=== PATIENT | male | born 1955 | race Caucasian/White ===

== ENCOUNTER → 2018-05-19 16:04 | Outpatient (CLI) | payer BC, SELFPAY | PROVIDERS: PCP Family Medicine; Visit Provider Family Medicine | DX: R40.0 Somnolence (principal); I10 Essential (primary) hypertension; E66.9 Obesity, unspecified | CPT/HCPCS: 95806 ==

== ENCOUNTER → 2018-05-23 13:36 | Outpatient (CLI) | payer BC, SELFPAY ==
[2018-05-23 14:30] VITALS: PULSE 71; PULSE 76
--- NOTE | 2018-05-23 14:43 | CT_ITS ---
CT lung screening EXAM: CT LUNG LOW DOSE WO CONTRAST HISTORY: 40 pack-year smoking history, asymptomatic for lung cancer ITS.REASON: CURRENT TOBACCO USE ORDERING PHYSICIAN: Dilan Barba MD PATIENT AGE: 62 years COMPARISON: None TECHNIQUE: The exam was performed on a GE Light Speed [address] scanner using 2.90 mGy CTDI. A low dose helical CT CHEST was performed on a multi-detector scanner. All CT scans at the facility use one or more dose reduction, viz: automated exposure control, ma/kV adjustment per patient size (including targeted exams where dose is matched to indication, i.e. head), or iterative reconstruction technique. The LDCT was performed in a facility that meets the criteria for the screening program. Data regarding this exam was submitted to ACR which is an approved registry. The order for this exam indicates that it came as a result of a lung cancer screening counseling shard decision-making visit that included all the elements required of such a visit including smoking cessation. The radiologist interpreting this exam meets the [facility] criteria for the LDCT lung cancer screening program. The exam is reported using the Lung-RADS classification scale and reported to the ACR registry. NOTE: This study was performed for the specific purposes of lung cancer screening and is not an alternative to diagnostic chest CT. RADIATION DOSE: CTDI vol(CT dose Index-volume) = 2.90mG DLP (Dose Length Product) = 119.07 mGcm FINDINGS: There are mild centrilobular emphysematous changes in the lung apices Incidental note made of bilateral gynecomastia. There are extensive coronary artery calcifications. There is a small subpleural opacity in the right upper lobe anteriorly at 7 mm. May be due to an area of parenchymal fibrosis. Small fibrotic changes present in the right lung base. There are fibrotic changes in the left lung base. A 6 mm noncalcified nodule present in the left lower lobe centrally. A 4 mm noncalcified nodule present in the left upper lobe laterally. There is a 14 mm stone in the upper pole the left kidney. There is an exophytic soft tissue density projecting off the left kidney posteriorly at 3 cm. This is indeterminant. Suggest ultrasound initially for further evaluation to determine cystic or solid nature. IMPRESSION: 1. Lung RADS Category: 3, probably benign with 7 mm nodule in the right upper lobe and a 6 and 4 mm nodule in the left 2. Other findings: Extensive coronary artery calcification, Left nephrolithiasis. Left renal mass. Cannot determine if this is cystic or solid on this exam. Suggest ultrasound initially for further evaluation RECOMMENDATIONS: 6 month LDCT follow-up Bilateral renal ultrasound
== END ==
PROVIDERS: PCP Family Medicine; Visit Provider Family Medicine
DX: Z12.2 Encounter for screening for malignant neoplasm of respiratory organs (principal); Z87.891 Personal history of nicotine dependence; R06.09 Other forms of dyspnea
CPT/HCPCS: 94060; 94640

== ENCOUNTER → 2018-06-17 12:29 | Outpatient (CLI) | payer BC, SELFPAY ==
--- NOTE | 2018-06-17 13:24 | US_ITS ---
US Kidney CLINICAL INDICATION: ITS.REASON: LT RENAL MASS ORDERING PHYSICIAN: Dilan Barba MD PATIENT AGE: 62 years Comparison: 05/23/2018 FINDINGS: The right kidney is 11 x 5.3 x 6.2 cm. No hydronephrosis or renal mass evident. The left kidney is 16 x 8 x 7 cm. A septated cyst is present in the upper pole and 4 by x 2.7 cm corresponding to the CT abnormality. There is some irregularity of the anterior wall the cyst. Calcifications noted in the mid polar region of the left kidney consistent with nephrolithiasis. IMPRESSION: 1. Complex 4 x 2.7 cm left renal cyst corresponding to the CT abnormality. Suggest 3 month ultrasound follow-up 2. Left nephrolithiasis
== END ==
PROVIDERS: PCP Family Medicine; Visit Provider Family Medicine
DX: N28.89 Other specified disorders of kidney and ureter (principal)
CPT/HCPCS: 76770

== ENCOUNTER 2018-06-20 09:14 | Observation (INO) ==
--- NOTE | 2018-06-20 10:40 | Progress Note ---
[facility] Anesthesia Checklist - Structural Data Admitted From: Home Planned Operative Procedure/s: endoscopy - Airway Assessment C-Spine Mobility Assessed: Yes TMJ Mobility Assessed: Yes Dentition: Good Dentition - Neurological Assessment Level of Consciousness: Awake, Alert, Appropriate - Anesthesia Plan Anesthesia Risk discussed: Yes Anesthesia Plan: Verified ASA Class: III Anesthesia Type: MAC [facility] History Medical History: Reports:: Diabetes Mellitus Type 2, Hyperlipidemia, Hypertension, Lung Disease (belén no cpap), Myocardial Infarction Denies:: Diabetes Mellitus Type 1, Internal Pacemaker, Seizures Other Surgeries: No: Pacemaker Family Hx:: No significant family history
--- NOTE | 2018-06-20 11:28 | Procedure Note ---
[facility] Procedure Note Procedure Note:: Colonoscopy Procedure Report: Colonoscopy with cold snare polypectomy Endoscopist: Shaquille Alonso II, MD Referring physician: Dilan Barba MD Date of Procedure: June 20, 2018 Equipment: Olympus 180 variable stiffness pediatric colonoscope Sedation: MAC sedation Indication: Mr. Lawrence is a 62-year-old gentleman who is here for high risk colonoscopy. He recently had a positive Cologuard test. His brother had colon cancer in his 50s and his sister had colon cancer in her 40s. His last colonoscopy 5 to 6 years ago revealed 3 polyps. He reports no abdominal pain, weight loss, change in his bowel habits or rectal bleeding. Procedure: Prior to the procedure, a history and physical exam was performed, and patient's medications and allergies were reviewed. The risks, benefits and alternatives of the sedation and procedure were discussed with the patient. All questions were answered and informed consent was obtained. The patient was brought to the procedure room. Patient identification and proposed procedure were verified by the physician and the nurse. The patient was placed in a left lateral decubitus position and the scope was passed under direct vision. Throughout the procedure, the patient's blood pressure, pulse, and oxygen saturations were monitored continuously. The colonoscopy was accomplished without difficulty. The patient tolerated the procedure well. Findings: On digital rectal examination there was normal rectal tone. There were no external hemorrhoids. The prostate was mildly firm but symmetric without nodules. The colonoscope was introduced through the anal canal to the rectum and advanced to the cecum. The ileocecal valve and appendiceal orifice were id entified. The scope was advanced a short distance into the ileum which appeared grossly normal. The scope was then withdrawn into the colon. There were 2 ascending polyps (2 and 4 mm), one transverse polyp (5 mm), 3 descending polyps (2, 4 and 4 mm) and a rectal polyp x1 (4 mm polyp). All 7 polyps were removed via cold snare polypectomy. Upon retroflexion within the rectum there were grade 1 internal hemorrhoids.The preparation was excellent throughout with [place] Preparation Score of 9. The cecal time was 12 minutes. Impression: 1. Diminutive colonic polyps x7 2. Grade 1 internal hemorrhoids Plan: I will follow up the polyp pathology and recommend repeat colonoscopy again in 3 years based upon the polyp histology and the patient's family history. I would encourage fiber supplementation on a long-term daily maintenance basis.
--- NOTE | 2018-06-20 13:36 | Consult Report ---
History of Present Illness Consult date: 06/20/18 Consult reason: atrial fibrillation Chief complaint: A. fib, chest pain Additional Medical History:: 1. Coronary artery disease A. History of myocardial infarction greater than 6 years ago, reportedly no cardiac cath or intervention performed B. Extensive coronary artery calcification noted on CT of the chest, 05/2018 2. Hypertension A. History of HOCM by remote echocardiograms with last one in 2012 noting h ypertensive heart disease findings with LVEF 60-65% with mild to mod MR 3. Hyperlipidemia 4. Obesity 5. Type 2 diabetes mellitus 6. Left renal mass noted on CT, 05/2018 A. Complex left renal mass noted on renal ultrasound 06/[address] 7. YESSI, declines CPAP therapy History of present illness: 62-year-old white male with history of hypertension, hyperlipidemia, coronary artery disease with remote myocardial infarction and type 2 diabetes mellitus was seen in the postop area for atrial fibrillation. Patient was here for colonoscopy today and during the procedure was noted to be in atrial fibrillation. Patient denies any history of diagnosis of atrial fibrillation. He has recently been started on treatment for type 2 diabetes. He does relate a remote myocardial infarction without need for intervention but has not had any cardiology follow-up in several years. In reviewing his old records there echoes that show evidence of hypertrophic obstructive cardiomyopathy but the last echo in 2012 shows hypertensive heart disease. Normal ejection fraction with mild to moderate mitral regurgitation. Patient does relate a progressive 6-month history of exertional shortness of breath and chest pain that resolves with rest. Symptoms are coming on with less activity and lasting longer. He denies any nausea, vomiting, diarrhea or fever or chills recently. EKG today shows atrial fibrillation with controlled ventricular response. [facility] History Medical History: Reports:: Diabetes Mellitus Type 2, Hyperlipidemia, Hypertension, Lung Disease (yessi no cpap), Myocardial Infarction Denies:: Diabetes Mellitus Type 1, Internal Pacemaker, Seizures Other Surgeries: No: Pacemaker Family Hx:: No significant family history Meds Home Medications Medication Instructions Recorded Confirmed Type Amlodipine Besylate 10 mg PO DAILY 06/15/18 06/20/18 History Aspirin [Aspir 81] 81 mg PO DAILY 06/15/18 06/20/18 History Bisoprolol Fumarate [Bisoprolol 10 mg PO DAILY 06/15/18 06/20/18 History 10mg Tablet] Dapagliflozin Propanediol [Farxiga] 5 mg PO DAILY 06/15/18 06/20/18 History Rosuvastatin Calcium 20 mg PO DAILY 06/15/18 06/20/18 History Allergies Allergy/AdvReac Type Severity Reaction Status Date / Time No Known Allergies Allergy Verified 06/20/18 09:32 Review of Systems - *Cardiovascular Reports chest pain, Reports shortness of breath with activity - *Respiratory Reports shortness of breath with activity, Denies cough - *Gastrointestinal Denies nausea, Denies vomiting - *Genitourinary Denies painful urination, Denies blood in urine - *Musculoskeletal Denies joint pain, Denies back pain Exam Vital signs and Labs for Last 24 Hours: Temp Pulse Resp BP Pulse Ox 97.9 F 81 18 148/98 H 95 06/20/18 11:30 06/20/18 12:30 06/20/18 12:30 06/20/18 12:30 06/20/18 12:30 Laboratory Results - last 24 hr 06/20/18 09:43: POC Glucose 118 H - *Routine HEENT Exam Head: Present: normocephalic Eye: Present: EOMI, PERRL ENT: Present: mucous membranes moist - *Routine Neck Exam Present: supple. Absent: JVD, carotid bruit - *Routine Respiratory Exam Present: CTA bilaterally. Absent: accessory muscle use, rales, rhonchi, wheezes - *Routine Cardiovascular Exam Present: murmur, irregularly irregular. Absent: gallop, rubs - *Routine Abdominal Exam Present: soft. Absent: tenderness, distended, guarding - *Routine Extremities Exam Absent: edema, calf tenderness - *Routine Neurological Exam Present: alert, oriented X3, moving all extremities Assessment and Plan (1) Atrial fibrillation, new onset Current visit: Yes Status: Acute Category: Medical Code(s): I48.91 - Unspecified atrial fibrillation (2) Unstable angina Current visit: Yes Status: Acute Category: Medical Code(s): I20.0 - Unstable angina (3) Diabetes mellitus type 2 in obese Current visit: Yes Status: Acute Category: Medical Code(s): E11.69 - Type 2 diabetes mellitus with other specified complication; E66.9 - Obesity, unspecified (4) Hypertension Current visit: Yes Status: Acute Category: Medical Code(s): I10 - Essential (primary) hypertension (5) Hyperlipidemia Current visit: Yes Status: Acute Category: Medical Code(s): E78.5 - Hyperlipidemia, unspecified (6) Obesity Current visit: Yes Status: Acute Category: Medical Code(s): E66.9 - Obesity, unspecified - Assessment and plan all Dx Assessment and Plan for all problems:: 1. Admitted to Dr. Barba 2. We will proceed with echocardiogram and left heart catheterization today due to extensive coronary artery calcification noted on CT scan of the chest last week in the setting of unstable angina pectoris, coronary artery disease with prior NH 3. Anticoagulation for A. fib with Xarelto 20 mg daily to begin post-cath 4. Further recommendations to follow pending above results
[2018-06-20 14:32] LABS: Basophils % 0.6 % (0.1-2.0); Eosinophils # 0.1 K/mm3 (0.0-0.4); Eosinophils % 0.8 % (0.1-12.0); Hematocrit 53.4 % (42.0-52.0); Lymphocytes # 1.3 K/mm3 (0.7-4.5); Lymphocytes % 17.1 % (10-50); Mean Corpuscular HGB Conc 34.1 g/dL (31.8-35.4); Mean Corpuscular Hemoglobin 32.4 pg (27.0-31.2); Mean Corpuscular Volume 95.1 fl (80-94); Mean Platelet Volume 7.9 fl (7.4-10.4); Monocytes # 0.5 K/mm3 (0.1-1.0); Monocytes % 7.1 % (1.7-9.3); Neutrophils # 5.7 K/mm3 (1.8-7.8); Neutrophils % 74.5 % (37.0-80.0); Platelet Count 233 K/mm3 (142-424); Red Blood Count 5.61 M/mm3 (4.60-6.20); Red Cell Distribution Width 13.5 % (11.5-17.5); White Blood Count 7.6 K/mm3 (4.8-10.8)
[2018-06-20 14:38] LABS: Anion Gap 15.9 mEq/L (5-15); Calcium 8.9 mg/dL (8.5-10.1); Potassium 3.9 mmoL/L (3.5-5.1)
[2018-06-20 14:46] LABS: Hemoglobin 18.3 g/dL (14.1-18.0)
--- NOTE | 2018-06-20 19:02 | History & Physical Report ---
*Admission Date: 06/20/18 *Chief complaint: Atrial fibrillation *History of present illness: 62-year-old male with history of coronary artery disease and diabetes was in the outpatient setting today getting a screening colonoscopy. During monitoring for screening colonoscopy he was identified as having atrial fibrillation. Cardiology service was contacted and patient admitted to change in activity tolerance with dyspnea on exertion and on recent CT scan significant coronary artery calcifications. Patient was felt at high risk for complications and with this new onset of atrial fibrillation decision was made to admit the patient for further cardiology evaluation and ischemic work-up. Patient was taken to the [facility] shortly upon admission and findings were as follows: IMPRESSION: 1. Critical 2 vessel coronary artery disease as described above 2. Successful reconstruction of the ostial proximal mid distal circumflex artery as described above critical disease reduced to 10% with 5 drug-eluting stents 3. Normal ejection fraction 4. Mildly elevated LVEDP 5. High dose radiation for the diagnostic and interventional procedure PLAN: 1. Brilinta and aspirin 2. Anticoagulation for chronic atrial fibrillation. I recommend Xarelto to be dosed according to GFR. 3. At the end of one month aspirin can be discontinued and Brilinta and Xarelto she continued 4. Beta blockers and brijesh inhibitors 5. IV fluids overnight with history of both tomorrow and the following day 6. Patient should be monitored for radiation [place] should be most prevalent on the posterior aspect 7. Avoidance of tobacco products Cardiac rehabilitation [facility] History I have reviewed the patient's past medical history: Yes Medical History: Reports:: Diabetes Mellitus Type 2, Hyperlipidemia, Hypertension, Lung Disease (belén no cpap), Myocardial Infarction Denies:: Diabetes Mellitus Type 1, Internal Pacemaker, Seizures Other Surgeries: No: Pacemaker - *Social History Educational Level: Completed High School Smoking Status: Current every day smoker *Occupational Status:: employed *Travel in the last 8 weeks: None Family Hx:: No significant family history Review of Systems - Review of Systems Review of systems:: pertinent systems reviewed and negative unless documented below - *Cardiovascular Reports excessive sweating, Reports shortness of breath, Reports shortness of breath with activity, Reports irregular heart rhythm, Reports rapid, pounding, or irregular heartbeat, Denies chest pain, Denies chest pain at rest, Denies chest pain with activity Meds Home Medications Medication Instructions Recorded Confirmed Type Amlodipine Besylate 10 mg PO DAILY 06/15/18 06/20/18 History Aspirin [Aspir 81] 81 mg PO DAILY 06/15/18 06/20/18 History Bisoprolol Fumarate [Bisoprolol 10 mg PO DAILY 06/15/18 06/20/18 History 10mg Tablet] Dapagliflozin Propanediol [Farxiga] 5 mg PO DAILY 06/15/18 06/20/18 History Rosuvastatin Calcium 20 mg PO DAILY 06/15/18 06/20/18 History Allergies Allergy/AdvReac Type Severity Reaction Status Date / Time No Known Allergies Allergy Verified 06/20/18 09:32 Exam Vital signs and Labs for Last 24 Hours: Temp Pulse Resp BP Pulse Ox 97.5 F L 70 13 156/102 H 93 L 06/20/18 18:25 06/20/18 18:43 06/20/18 18:40 06/20/18 18:40 06/20/18 18:40 Laboratory Results - last 24 hr 06/20/18 09:43: POC Glucose 118 H 06/20/18 14:25: WBC 7.6, RBC 5.61, Hgb 18.3 H*, Hct 53.4 H, MCV 95.1 H, MCH 32.4 H, MCHC 34.1, RDW 13.5, Plt Count 233, MPV 7.9, Neut % (Auto) 74.5, Lymph % (Auto) 17.1, [place] % (Auto) 7.1, Eos % (Auto) 0.8, Baso % (Auto) 0.6, Neut # (Auto) 5.7, Lymph # (Auto) 1.3, [place] # (Auto) 0.5, Eos # (Auto) 0.1, Baso # (Auto) 0.0 06/20/18 14:25: Sodium 138, Potassium 3.9, Chloride 103, Carbon Dioxide 23, Anion Gap 15.9 H, BUN 14, Creatinine 1.04, Estimated Creat Clear 118, Estimated GFR 72, Est GFR ( Amer) 88, Glucose 121 H, Calcium 8.9 06/20/18 15:08: Activated Clotting Time > 400 H* 06/20/18 16:57: Activated Clotting Time > 400 H* 06/20/18 17:21: Activated Clotting Time 283 H* D I & O for Last 24 hours: Intake & Output 06/18/18 06/19/18 06/20/1807/19 11:59 11:59 11:59 11:59 Intake Total 1100 / 1100 Balance 1100 / 1100 Narrative: Patient is awake and alert laying in bed. Oropharynx is moist and clear. Neck has no carotid bruits. There is no jugular venous distention. Lungs are clear. Heart has an irregular rate and rhythm. Abdomen is obese. Extremities are warm to the touch. Assessment and Plan (1) Atrial fibrillation, new onset Current visit: Yes Status: Acute Category: Medical Code(s): I48.91 - Unspecified atrial fibrillation (2) Unstable angina Current visit: Yes Status: Acute Category: Medical Code(s): I20.0 - Unstable angina (3) Diabetes mellitus type 2 in obese Current visit: Yes Status: Acute Category: Medical Code(s): E11.69 - Type 2 diabetes mellitus with other specified complication; E66.9 - Obesity, unspecified (4) Hypertension Current visit: Yes Status: Acute Category: Medical Code(s): I10 - Essential (primary) hypertension (5) Hyperlipidemia Current visit: Yes Status: Acute Category: Medical Code(s): E78.5 - Hyperlipidemia, unspecified (6) Obesity Current visit: Yes Status: Acute Category: Medical Code(s): E66.9 - Obesity, unspecified (7) Coronary artery disease Current visit: Yes Status: Acute Category: Medical Code(s): I25.10 - Atherosclerotic heart disease of [place] coronary artery without angina pectoris - Assessment and plan all Dx Assessment and Plan for all problems:: 1. Cardiac monitoring overnight. Patient will be given his amlodipine, BRIJESH inhibitor will be started. Beta-sean will be held due to mild bradycardia. Begin Xarelto in addition to aspirin and Brilinta
--- NOTE | 2018-06-20 20:17 | Cardiology Report ---
PROCEDURE: 2-D M-mode and color Doppler study INDICATIONS FOR THE TEST: Chest pain COPD Heart Murmur Tobacco Smoking Palpitations Fatigue Syncope Edema HypertensionXDiabetes MellitusX Rheumatic Fever SOB [place]UMMOND ObesityXHyperlipidemiaX Family History HD TDS OBESITY Additional History NEW ONSET AF,CAD,YESSI PATIENT INFORMATION HEIGHT: 67 WEIGHT:250 GENDER: Male B/P:110/70 2-D/M-MODE INTERPRETATION: 2-D MEASUREMENTS OBSERVED VALUES IN CMS Right Ventricular Dimension (RVDd) 2.4 Interventricular Septum (Thickness)(IVsd) 1.2 Left Ventricular Internal Dimensions(LVIDd) 4.8 Left Ventricular Posterior Wall (Thickness)(LVPWd) 1.3 Aortic Root 4.1 Aortic Cusp Separation 1.6 Left Atrial Dimensions (LAD) 4.3 2D 1. Left atrium is moderately enlarged, left ventricle is normal size, mild concentric left ventricular hypertrophy, visually estimated ejection fraction 55% with no regional wall motion abnormality. 2. The right atrium and right ventricle are moderately enlarged with normal contractility. 3. The aortic valve is thickened and calcified, leaflet continue to display mobility. 4. The mitral and tricuspid valve leaflets are minimally thickened. 5. The pulmonic valve is poorly visualized. 6. No significant pericardial effusion noted. DOPPLER INTERROGATION: Doppler interrogation of the aortic, mitral and tricuspid valvular presence of mild mitral and tricuspid regurgitation, calculated right ventricular systolic pressure is 44 mmHg consistent with moderate pulmonary hypertension, diastolic parameters are inconclusive. CONCLUSION: 1. Moderate biatrial enlargement, normal left ventricular size, mild concentric left ventricular hypertrophy, visually estimated ejection fraction 55% with no regional wall motion abnormality, diastolic parameters are inconclusive. 2. Moderately enlarged left ventricle with normal contractility. 3. Mild mitral and tricuspid regurgitation, calculated right ventricular systolic pressure is 44 mmHg consistent with moderate pulmonary hypertension. 4. No significant pericardial effusion noted.
[2018-06-21 05:21] LABS: Basophils % 0.2 % (0.1-2.0); Eosinophils % 0.2 % (0.1-12.0); Hematocrit 45.6 % (42.0-52.0); Lymphocytes # 1.5 K/mm3 (0.7-4.5); Mean Corpuscular Volume 94.2 fl (80-94); Mean Platelet Volume 8.2 fl (7.4-10.4); Monocytes # 0.8 K/mm3 (0.1-1.0); Monocytes % 7.4 % (1.7-9.3); Neutrophils # 8.9 K/mm3 (1.8-7.8); Neutrophils % 79.3 % (37.0-80.0); Platelet Count 229 K/mm3 (142-424); Red Blood Count 4.84 M/mm3 (4.60-6.20); Red Cell Distribution Width 13.6 % (11.5-17.5); White Blood Count 11.3 K/mm3 (4.8-10.8)
[2018-06-21 05:25] LABS: Hemoglobin 15.6 g/dL (14.1-18.0)
[2018-06-21 05:29] LABS: Anion Gap 13.8 mEq/L (5-15); Calcium 8.4 mg/dL (8.5-10.1); Potassium 3.8 mmoL/L (3.5-5.1)
--- NOTE | 2018-06-21 07:00 | Progress Note ---
Internal Medicine - PN: Subj *Date: 06/21/18 *Time: 06:58 Interval history: Patient has no complaints and reports feeling well this morning. He denies chest pain or palpitations or shortness of breath. Nursing reports patient required a dose of clonidine overnight due to hypertension. Exam Vital signs and Labs for Last 24 Hours: Temp Pulse Resp BP Pulse Ox 98.1 F 87 16 122/74 97 06/21/18 00:55 06/21/18 06:00 06/21/18 00:55 06/21/18 06:00 06/21/18 06:00 Laboratory Results - last 24 hr 06/20/18 09:43: POC Glucose 118 H 06/20/18 14:25: WBC 7.6, RBC 5.61, Hgb 18.3 H*, Hct 53.4 H, MCV 95.1 H, MCH 32.4 H, MCHC 34.1, RDW 13.5, Plt Count 233, MPV 7.9, Neut % (Auto) 74.5, Lymph % (Auto) 17.1, [place] % (Auto) 7.1, Eos % (Auto) 0.8, Baso % (Auto) 0.6, Neut # (Auto) 5.7, Lymph # (Auto) 1.3, [place] # (Auto) 0.5, Eos # (Auto) 0.1, Baso # (Auto) 0.0 06/20/18 14:25: Sodium 138, Potassium 3.9, Chloride 103, Carbon Dioxide 23, Anion Gap 15.9 H, BUN 14, Creatinine 1.04, Estimated Creat Clear 118, Estimated GFR 72, Est GFR ( Amer) 88, Glucose 121 H, Calcium 8.9 06/20/18 15:08: Activated Clotting Time > 400 H* 06/20/18 16:57: Activated Clotting Time > 400 H* 06/20/18 17:21: Activated Clotting Time 283 H* D 06/21/18 04:55: WBC 11.3 H D, RBC 4.84, Hgb 15.6 D, Hct 45.6, MCV 94.2 H, MCH 32.0 H, MCHC 34.0, RDW 13.6, Plt Count 229, MPV 8.2, Neut % (Auto) 79.3, Lymph % (Auto) 13.0, [place] % (Auto) 7.4, Eos % (Auto) 0.2, Baso % (Auto) 0.2, Neut # (Auto) 8.9 H, Lymph # (Auto) 1.5, [place] # (Auto) 0.8, Eos # (Auto) 0.0, Baso # (Auto) 0.0 06/21/18 04:55: Sodium 138, Potassium 3.8, Chloride 105, Carbon Dioxide 23, Anion Gap 13.8, BUN 13, Creatinine 1.01, Estimated Creat Clear 117, Estimated GFR 75, Est GFR ( Amer) 91, Glucose 118 H, Calcium 8.4 L I & O for Last 24 hours: Intake & Output 06/18/18 06/19/18 06/20/18 06/21/18 11:59 11:59 11:59 11:59 Intake Total 1110 / 1110 Output Total 600 / 600 Balance 510 / 510 Weight 240 lb Narrative: Patient is awake and alert and sitting up in bed. He appears comfortable. Lungs are clear to auscultation. Heart has an irregularly irregular rate and rhythm. Abdomen is obese Assessment and Plan (1) Atrial fibrillation, new onset Current visit: Yes Status: Acute Category: Medical Code(s): I48.91 - Unspecified atrial fibrillation (2) Unstable angina Current visit: Yes Status: Acute Category: Medical Code(s): I20.0 - Unstable angina (3) Diabetes mellitus type 2 in obese Current visit: Yes Status: Acute Category: Medical Code(s): E11.69 - Type 2 diabetes mellitus with other specified complication; E66.9 - Obesity, unspecified (4) Hypertension Current visit: Yes Status: Acute Category: Medical Code(s): I10 - Essential (primary) hypertension (5) Hyperlipidemia Current visit: Yes Status: Acute Category: Medical Code(s): E78.5 - Hyperlipidemia, unspecified (6) Obesity Current visit: Yes Status: Acute Category: Medical Code(s): E66.9 - Obesity, unspecified (7) Coronary artery disease Current visit: Yes Status: Acute Category: Medical Code(s): I25.10 - Atherosclerotic heart disease of [place] coronary artery without angina pectoris - Assessment and plan all Dx Assessment and Plan for all problems:: 1. Patient will be ordered bisoprolol 10 mg this morning as it is his home dose beta-sean. 2. Continue BRIJESH inhibitor. 3. Possible discharge today, await cardiology evaluation
--- NOTE | 2018-06-21 07:17 | Pharmacy Consult Notes ---
[facility] Pharmacy VTE Monitoring - Patient Demographics Admission date: 06/20/18 Report Date: 06/21/18 Time: 07:17 Allergies/Adverse Reactions: Patient Allergies No Known Allergies Allergy (Verified 06/20/18 19:39) Height: 1.7 m Weight: 108.862 kg Patient Problems: Current Active Problems (Updated 06/20/18 @ 19:01 by Dilan Barba MD) Atrial fibrillation, new onset (Acute) Unstable angina (Acute) Diabetes mellitus type 2 in obese (Acute) Hypertension (Acute) Hyperlipidemia (Acute) Obesity (Acute) Coronary artery disease (Acute) - VTE Risk Labs: VTE Related Lab Results Hgb 15.6 g/dL (14.1-18.0) D 06/21/18 04:55 Hct 45.6 % (42.0-52.0) 06/21/18 04:55 Plt Count 229 K/mm3 (142-424) 06/21/18 04:55 BUN 13 mg/dL (7-18) 06/21/18 04:55 Creatinine 1.01 mg/dL (0.70-1.30) 06/21/18 04:55 Estimated Creat Clear 117 mL/min (50-200) 06/21/18 04:55 Was VTE Risk Assessment Performed: Yes VTE Score: 3 VTE Risk Level: Low Risk Clinical Trial Participant: No - Prophylaxis Types of VTE Prophylaxis: Pharmacological Location of Applied Device: Not Applicable Pharmacologic Type: Heparin
--- NOTE | 2018-06-21 09:16 | Progress Note ---
Subjective Date: 06/21/18 Time: 09:09 Principal diagnosis: UAP, New A. fib Interval history: 62 yo WM in bedside chair in NAD. No complaints overnight. Telemetry shows A. fib with RVR up to 130 bpm. Wants to go home. Reviewed cardiac cath results with patient and . Exam Vital signs and Labs for Last 24 Hours: Temp Pulse Resp BP Pulse Ox 98.1 F 121 H 18 130/63 95 06/21/18 00:55 06/21/18 08:00 06/21/18 08:00 06/21/18 08:00 06/21/18 08:00 Laboratory Results - last 24 hr 06/20/18 09:43: POC Glucose 118 H 06/20/18 14:25: WBC 7.6, RBC 5.61, Hgb 18.3 H*, Hct 53.4 H, MCV 95.1 H, MCH 32.4 H, MCHC 34.1, RDW 13.5, Plt Count 233, MPV 7.9, Neut % (Auto) 74.5, Lymph % (Auto) 17.1, [place] % (Auto) 7.1, Eos % (Auto) 0.8, Baso % (Auto) 0.6, Neut # (Auto) 5.7, Lymph # (Auto) 1.3, [place] # (Auto) 0.5, Eos # (Auto) 0.1, Baso # (Auto) 0.0 06/20/18 14:25: Sodium 138, Potassium 3.9, Chloride 103, Carbon Dioxide 23, Anion Gap 15.9 H, BUN 14, Creatinine 1.04, Estimated Creat Clear 118, Estimated GFR 72, Est GFR ( Amer) 88, Glucose 121 H, Calcium 8.9 06/20/18 15:08: Activated Clotting Time > 400 H* 06/20/18 16:57: Activated Clotting Time > 400 H* 06/20/18 17:21: Activated Clotting Time 283 H* D 06/21/18 04:55: WBC 11.3 H D, RBC 4.84, Hgb 15.6 D, Hct 45.6, MCV 94.2 H, MCH 32.0 H, MCHC 34.0, RDW 13.6, Plt Count 229, MPV 8.2, Neut % (Auto) 79.3, Lymph % (Auto) 13.0, [place] % (Auto) 7.4, Eos % (Auto) 0.2, Baso % (Auto) 0.2, Neut # (Auto) 8.9 H, Lymph # (Auto) 1.5, [place] # (Auto) 0.8, Eos # (Auto) 0.0, Baso # (Auto) 0.0 06/21/18 04:55: Sodium 138, Potassium 3.8, Chloride 105, Carbon Dioxide 23, Anion Gap 13.8, BUN 13, Creatinine 1.01, Estimated Creat Clear 117, Estimated GFR 75, Est GFR ( Amer) 91, Glucose 118 H, Calcium 8.4 L I & O for Last 24 hours: Intake & Output 06/18/18 06/19/18 06/20/18 06/21/18 11:59 11:59 11:59 11:59 Intake Total 1110 / 1110 Output Total 600 / 600 Balance 510 / 510 Weight 240 lb - *Routine HEENT Exam Head: Present: normocephalic Eye: Present: EOMI, PERRL ENT: Present: mucous membranes moist - *Routine Respiratory Exam Present: CTA bilaterally. Absent: accessory muscle use, rales, rhonchi, wheezes - *Routine Cardiovascular Exam Present: RRR. Absent: murmur, gallop, rubs - *Routine Extremities Exam Absent: edema, calf tenderness - *Routine Neurological Exam Present: alert, oriented X3, moving all extremities Progress Note: A&P (1) Atrial fibrillation, new onset Status: Acute Current Visit: Yes (2) Unstable angina Status: Acute Current Visit: Yes (3) Diabetes mellitus type 2 in obese Status: Acute Current Visit: Yes (4) Hypertension Status: Acute Current Visit: Yes (5) Hyperlipidemia Status: Acute Current Visit: Yes (6) Obesity Status: Acute Current Visit: Yes (7) Coronary artery disease Status: Acute Current Visit: Yes Assessment and Plan for All Diagnoses:: 1. Extensive coronary intervention of circumflex yesterday with high dose radiation exposure. Asymptomatic this AM with no chest pain or skin medina. 2. LILY to Cx, on ASA 81 mg daily and brilinta 90 mg BID. 3. Newly diagnosed A. fib, on Xarelto 20 mg daily. 4. Would recommend increasing bisoprolol to 10 mg in the AM and 5 mg in the evening for rate control. 5. Lisinopril for renal protection in diabetic. Adjust dose as needed for BP. 6. Atorvastatin 40 mg daily. 7. would discontinue norvasc in favor of more bisoprolol and lisinopril. 8. Follow up in our office next week. 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
--- NOTE | 2018-06-21 14:40 | Discharge Summary ---
General - General Admission date:: 06/20/18 Discharge date: 06/21/18 HPI HPI: 62-year-old male with history of coronary artery disease and diabetes was in the outpatient setting today getting a screening colonoscopy. During monitoring for screening colonoscopy he was identified as having atrial fibrillation. Cardiology service was contacted and patient admitted to change in activity tolerance with dyspnea on exertion and on recent CT scan significant coronary artery calcifications. Patient was felt at high risk for complications and with this new onset of atrial fibrillation decision was made to admit the patient for further cardiology evaluation and ischemic work-up. Patient was taken to the Chief Underwriter shortly upon admission and findings were as follows: IMPRESSION: 1. Critical 2 vessel coronary artery disease as described above 2. Successful reconstruction of the ostial proximal mid distal circumflex artery as described above critical disease reduced to 10% with 5 drug-eluting stents 3. Normal ejection fraction 4. Mildly elevated LVEDP 5. High dose radiation for the diagnostic and interventional procedure PLAN: 1. Brilinta and aspirin 2. Anticoagulation for chronic atrial fibrillation. I recommend Xarelto to be dosed according to GFR. 3. At the end of one month aspirin can be discontinued and Brilinta and Xarelto she continued 4. Beta blockers and elvin inhibitors 5. IV fluids overnight with history of both tomorrow and the following day 6. Patient should be monitored for radiation medina should be most prevalent on the posterior aspect 7. Avoidance of tobacco products Cardiac rehabilitation Hospital Course Hospital Course: Patient was observed overnight. Blood pressure was elevated which required oral clonidine. Pulse remained 100bpm or less in atrial fibrillation. Medication adjustments were made to include bisoprolol 10mg in a.m. and 5mg in p.m., lisinopril 10 mg, Xarelto 20mg, and Brilinta 90mg bid. Patient was discharged to home later in day on 06/21/18 and will follow up with me on 06/[address] Campbell in one week Objective Vital signs: Temp Pulse Resp BP Pulse Ox 97.6 F 77 18 121/67 96 06/21/18 08:00 06/21/18 11:54 06/21/18 11:54 06/21/18 11:54 06/21/18 11:54 Results Labs on day of discharge: Labs from last 24 hours 06/21/18 06/21/18 06/20/18 04:55 04:55 17:21 WBC 11.3 H D RBC 4.84 Hgb 15.6 D Hct 45.6 MCV 94.2 H MCH 32.0 H MCHC 34.0 RDW 13.6 Plt Count 229 MPV 8.2 Neut % (Auto) 79.3 Lymph % (Auto) 13.0 [place] % (Auto) 7.4 Eos % (Auto) 0.2 Baso % (Auto) 0.2 Neut # (Auto) 8.9 H Lymph # (Auto) 1.5 [place] # (Auto) 0.8 Eos # (Auto) 0.0 Baso # (Auto) 0.0 Activated Clotting Time 283 H* D Sodium 138 Potassium 3.8 Chloride 105 Carbon Dioxide 23 Anion Gap 13.8 BUN 13 Creatinine 1.01 Estimated Creat Clear 117 Estimated GFR 75 Est GFR ( Amer) 91 Glucose 118 H Calcium 8.4 L 06/20/18 06/20/18 06/20/18 16:57 15:08 14:25 WBC RBC Hgb Hct MCV MCH MCHC RDW Plt Count MPV Neut % (Auto) Lymph % (Auto) [place] % (Auto) Eos % (Auto) Baso % (Auto) Neut # (Auto) Lymph # (Auto) [place] # (Auto) Eos # (Auto) Baso # (Auto) Activated Clotting Time > 400 H* > 400 H* Sodium 138 Potassium 3.9 Chloride 103 Carbon Dioxide 23 Anion Gap 15.9 H BUN 14 Creatinine 1.04 Estimated Creat Clear 118 Estimated GFR 72 Est GFR ( Amer) 88 Glucose 121 H Calcium 8.9 06/20/18 14:25 WBC RBC Hgb 18.3 H* Hct MCV MCH MCHC RDW Plt Count MPV Neut % (Auto) Lymph % (Auto) [place] % (Auto) Eos % (Auto) Baso % (Auto) Neut # (Auto) Lymph # (Auto) [place] # (Auto) Eos # (Auto) Baso # (Auto) Activated Clotting Time Sodium Potassium Chloride Carbon Dioxide Anion Gap BUN Creatinine Estimated Creat Clear Estimated GFR Est GFR ( Amer) Glucose Calcium DS: Diagnosis - Discharge Diagnosis (1) Atrial fibrillation, new onset Status: Acute (2) Unstable angina Status: Acute (3) Diabetes mellitus type 2 in obese Status: Acute (4) Hypertension Status: Acute (5) Hyperlipidemia Status: Acute (6) Obesity Status: Acute (7) Coronary artery disease Status: Acute Discharge Plan - Patient Discharge Instructions ACTIVITY: Continue current activity DIET: continue same diet Patient Instructions: Type 2 Diabetes, Atrial Fibrillation, Angina, Cardiac Catheterization, High Blood Pressure, DI for Angina, DI for Atrial Fibrillation, DI for Diabetes Type 2, DI for Surgical Site Infection - Follow up Plan Follow up with: Peewee Campbell MD [Staff Physician] - Dilan Barba MD [Primary Care Provider] - 06/24/18 8:45 am Disposition: Home, Self-Half-Way Medications: Home Medications Medication Instructions Recorded Confirmed Type Aspirin [Aspir 81] 81 mg PO DAILY 06/15/18 06/20/18 History Rosuvastatin Calcium 20 mg PO DAILY 06/15/18 06/20/18 History Bisoprolol Fumarate [Bisoprolol 10 mg PO DIRECTED 30 Days #45 06/21/18 Rx 10mg Tablet] tab Lisinopril [Lisinopril 10mg Tab] 10 mg PO DAILY #30 tab 06/21/18 Rx Rivaroxaban [Xarelto 20mg Tablet] 20 mg PO DAILY #30 tab 06/21/18 Rx Ticagrelor [Brilinta 90mg Tablet] 90 mg PO BID #60 tab 06/21/18 Rx Prescriptions/Medication Reconciliation: New Ticagrelor [Brilinta 90mg Tablet] 90 mg PO BID #60 tab Rivaroxaban [Xarelto 20mg Tablet] 20 mg PO DAILY #30 tab Bisoprolol Fumarate [Bisoprolol 10mg Tablet] 10 mg PO DIRECTED 30 Days #45 tab Lisinopril [Lisinopril 10mg Tab] 10 mg PO DAILY #30 tab Continued Rosuvastatin Calcium 20 mg PO DAILY Aspirin [Aspir 81] 81 mg PO DAILY Discontinued Bisoprol/Hydrochlorothiazide [Bisoprolol-Hctz 5-6.25 mg Tab] 1 tab PO DAILY Empagliflozin [Jardiance] 10 mg PO DAILY Amlodipine Besylate/Benazepril [Amlodipine-Benazepril 10-40 mg] 1 cap PO DAILY
== END 2018-06-21 13:49 | disposition home or self-care (01) ==
LOC: OUTP 09:14 → ICU 09:14
PROVIDERS: ADMIT Family Medicine; ATTEND Family Medicine
CPT/HCPCS: 36415; 80048; 82962; 85025; 85347; 92928; 93005; 93306; 93458; 99152; 99153; C1725; C1760; C1769; C1876; C1894; C9600; G0378; J1644; Q9967

== ENCOUNTER → 2018-06-24 09:25 | Outpatient (CLI) | payer BC, SELFPAY ==
[2018-06-24 09:53] LABS: Hematocrit 48.1 % (42.0-52.0); Hemoglobin 15.7 g/dL (14.1-18.0)
[2018-06-24 11:14] LABS: Blood Urea Nitrogen 13 mg/dL (7-18); Creatinine,Serum 1.05 mg/dL (0.70-1.30); Estimated Glomerular Filt Rate 72 ml/min (>60); GFR (African American) 87 ML/MIN (>60)
== END ==
PROVIDERS: Visit Provider Internal Medicine
DX: Z95.5 Presence of coronary angioplasty implant and graft (principal)
CPT/HCPCS: 36415; 82565; 84520; 85014; 85018

== ENCOUNTER → 2018-07-29 11:58 | Outpatient (CLI) | payer BC, SELFPAY ==
--- NOTE | 2018-07-29 12:11 | XR_ITS ---
XR chest 2V HISTORY: Heart disease, cardiac dysrhythmia, shortness of breath ITS.REASON: amiodarone therapy ORDERING PHYSICIAN: Oseas Swenson MD PATIENT AGE: 62 years COMPARISON: None FINDINGS: There is mild cardiomegaly without failure. Lungs are clear. No evidence of amiodarone-induced lung toxicity. Coronary artery stent is noted. No acute bony findings. IMPRESSION: Cardiomegaly, otherwise negative.
[2018-07-29 14:56] LABS: Alanine Aminotransferase 50 U/L (12-78); Albumin Level 3.9 gm/dL (3.4-5.0); Alkaline Phosphatase 72 U/L (46-116); Aspartate Amino Transferase 24 U/L (15-37); Bilirubin,Direct 0.2 mg/dL (0.0-0.2); Bilirubin,Indirect 0.5 mg/dL (0.0-0.9); Bilirubin,Total 0.7 mg/dL (0.2-1.0); Free Thyroxine Index 1.1 ug/dL (5.93-13.13); T4 (Thyroxine) 3.6 ug/dl (4.7-13.3); Thyroid Stimulating Hormone 5.33 uIU/ml (0.358-3.740); Total Protein,Serum 7.2 gm/dL (6.4-8.2); Triiodothryronine (T3) Uptake 31 % (31-39)
== END ==
PROVIDERS: Visit Provider Internal Medicine Cardiovascular Disease
DX: E11.69 Type 2 diabetes mellitus with other specified complication (principal); E66.01 Morbid (severe) obesity due to excess calories; E78.2 Mixed hyperlipidemia; I10 Essential (primary) hypertension; I25.10 Atherosclerotic heart disease of native coronary artery without angina pectoris; R06.00 Dyspnea, unspecified; I48.91 Unspecified atrial fibrillation; Z79.899 Other long term (current) drug therapy
CPT/HCPCS: 36415; 71046; 80076; 84436; 84443; 84479

== ENCOUNTER → 2018-08-26 13:13 | Outpatient (CLI) | payer BC, SELFPAY ==
--- NOTE | 2018-08-26 | NVE_ITS ---
Venous Exam Indications: 782.3 Edema. 729.5 Pain in limb. Cardioversion 08/11/18. Patient states he had an IV stick with the cardioversion but was in the right upper extremity. States he has had extensive bruising and swelling in the left upper extremity since. Palpable area noted in the mid upper arm of the left extremity. IMPRESSIONS No evidence of deep or superficial vein thrombosis involving the veins of the left upper extremity History: Left upper extremity pain. Redness in the left upper extremity. Left upper extremity venous duplex. Doppler flow study including spectral analysis, color and tolliver scale imaging. Location: Vascular laboratory. Patient status: Outpatient. CRITICAL FINDINGS - Reported to: Dr. DEBBY Rios office - Read back and verified. - 08/26/18 - 13:45 - LUE negative for DVT or SVT Incidental findings: A hematoma is noted incidentally on the left. Tables: Venous flow and imaging: + + + Location Flow properties + + + Left internal jugular Normal phasicity; spontaneous; compressible + + + Left subclavian Normal phasicity; spontaneous; normal augmentation; compressible + + + Left axillary Normal phasicity; spontaneous; normal augmentation; compressible + + + Left brachial Normal phasicity; spontaneous; normal augmentation; compressible + + + Left cephalic Normal phasicity; spontaneous; normal augmentation; compressible + + + Left basilic Normal phasicity ; spontaneous; normal augmentation; compressible + + + Left radial Compressible + + + Left ulnar Compressible + + + Right subclavian Normal phasicity; spontaneous; normal augmentation; compressible + + + (Report amended ) Electronically signed by: Renny Salinas [id number]
== END ==
PROVIDERS: PCP Family Medicine; Visit Provider Internal Medicine Cardiovascular Disease
DX: M79.622 Pain in left upper arm (principal); R60.0 Localized edema
CPT/HCPCS: 93971

== ENCOUNTER → 2018-09-19 13:12 | Outpatient (CLI) | payer BC, SELFPAY ==
--- NOTE | 2018-09-19 13:17 | US_ITS ---
US Kidney CLINICAL INDICATION: Follow-up left renal mass ITS.REASON: LT RENAL MASS ORDERING PHYSICIAN: Dilan Barba MD PATIENT AGE: 63 years Comparison: 06/17/2018 FINDINGS: The right kidney is 10 x 4 x 5 cm. No hydronephrosis, renal mass, or other significant anomalies. Left kidney is 15 x 8 x 7 cm. There is a complex septated cystic lesion in the mid aspect of the left kidney at 4.4 x 3.9 x 2.8 cm not significant change. No hydronephrosis. IMPRESSION: Overall no significant change complex left renal cyst. 6 month follow-up recommended
== END ==
PROVIDERS: PCP Family Medicine; Visit Provider Family Medicine
DX: N28.89 Other specified disorders of kidney and ureter (principal)
CPT/HCPCS: 76770

== ENCOUNTER → 2019-03-31 12:47 | Outpatient (CLI) | payer BC, SELFPAY ==
--- NOTE | 2019-03-31 13:00 | US_ITS ---
PROCEDURE: US KIDNEY CLINICAL INDICATION: AQUIRED COMPLEX RENAL CYST COMPARISON: KIDNEY US Kidney from 09/19/2018 FINDINGS: The right kidney is 9 x 5 x 6 cm. There is some cortical thinning involving the right kidney suggesting some scarring. No hydronephrosis. The left kidney is 16 x 7 x 7 cm. There is a complex cyst involving the mid polar region of the left kidney measuring 4.5 by 4.1 by 2.5 cm with an internal septation. This is not significantly changed. No left hydronephrosis IMPRESSION: No change in the complex left renal cyst Dictated by: Renny Salinas MD 03/31/2019 15:49 Electronically signed by Renny Salinas MD in [place] 03/31/2019 15:49
== END ==
PROVIDERS: PCP Family Medicine; Visit Provider Family Medicine
DX: N28.1 Cyst of kidney, acquired (principal)
CPT/HCPCS: 76770

== ENCOUNTER → 2019-06-15 14:12 | Outpatient (CLI) | payer BC, SELFPAY ==
--- NOTE | 2019-06-15 14:16 | CT_ITS ---
PROCEDURE: CT LUNG SCREENING CLINICAL INDICATION: H/O NICOTINE DEPENDENCE 40+ pack-year smoking history, asymptomatic for lung cancer COMPARISON: LUNGSCREEN CT lung screening from 05/23/2018 TECHNIQUE: The exam was performed on a GE Light Speed [address] scanner using 2.90 mGy CTDI. A low dose helical CT CHEST was performed on a multi-detector scanner. All CT scans at the facility use one or more dose reduction, viz: automated exposure control, ma/kV adjustment per patient size (including targeted exams where dose is matched to indication, i.e. head), or iterative reconstruction technique. The LDCT was performed in a facility that meets the criteria for the screening program. Data regarding this exam was submitted to ACR which is an approved registry. The order for this exam indicates that it came as a result of a lung cancer screening counseling shard decision-making visit that included all the elements required of such a visit including smoking cessation. The radiologist interpreting this exam meets the [facility] criteria for the LDCT lung cancer screening program. The exam is reported using the Lung-RADS classification scale and reported to the ACR registry. NOTE: This study was performed for the specific purposes of lung cancer screening and is not an alternative to diagnostic chest CT. RADIATION DOSE: CTDI vol(CT dose Index-volume) = 2.90mG DLP (Dose Length Product) = 101.60 mGcm FINDINGS: Stable subpleural opacity right middle lobe at 5 mm. There is some faint ground-glass attenuation in the the lower lobes. 4 mm nodular opacity left lower lobe image 36 series 4 unchanged. No new nodules evident.. Stable 4 mm nodule left upper lobe. OTHER FINDINGS: Extensive coronary artery calcification. Gynecomastia. Cortical scarring of the right kidney. Previously noted exophytic density of the left kidney is not covered on this exam. IMPRESSION: Lung rads category 2 benign findings. Recommend annual screening LD CT Extensive coronary artery calcification Dictated by: Renny Salinas MD 07/06/2019 09:22 Electronically signed by Renny Salinas MD in [place] 07/06/2019 09:22
== END ==
PROVIDERS: PCP Family Medicine; Visit Provider Family Medicine
DX: Z87.891 Personal history of nicotine dependence (principal); Z12.2 Encounter for screening for malignant neoplasm of respiratory organs

== ENCOUNTER → 2019-08-28 11:11 | Outpatient (CLI) | payer BC, SELFPAY ==
[2019-08-28 12:15] LABS: Chloride 105 mmol/L (98-107); Potassium 4.6 mmoL/L (3.5-5.1); Sodium 142 mmol/L (136-145)
[2019-08-28 12:18] LABS: Anion Gap 15.6 mEq/L (5-15); Blood Urea Nitrogen 22 mg/dl (9-20); Calcium 9.8 mg/dl (8.4-10.2); Carbon Dioxide 26 mmol/L (22.0-30.0); Estimated Glomerular Filt Rate 51 ml/min (>60); GFR (African American) 62 ML/MIN (>60); Glucose 144 mg/dl (74-100)
== END ==
PROVIDERS: Visit Provider Physician Assistant
DX: I25.10 Atherosclerotic heart disease of native coronary artery without angina pectoris (principal); I48.20 Chronic atrial fibrillation, unspecified; E78.2 Mixed hyperlipidemia; I10 Essential (primary) hypertension
CPT/HCPCS: 36415; 80048

== ENCOUNTER → 2019-09-04 08:00 | Outpatient (CLI) | payer BC, SELFPAY ==
[2019-09-04 08:55] LABS: Chloride 103 mmol/L (98-107); Potassium 4.7 mmoL/L (3.5-5.1); Sodium 140 mmol/L (136-145)
[2019-09-04 08:58] LABS: Anion Gap 12.7 mEq/L (5-15); Blood Urea Nitrogen 17 mg/dl (9-20); Carbon Dioxide 29 mmol/L (22.0-30.0); Estimated Glomerular Filt Rate 68 ml/min (>60); GFR (African American) 82 ML/MIN (>60)
[2019-09-04 08:59] LABS: Calcium 9.2 mg/dl (8.4-10.2); Glucose 154 mg/dl (74-100)
== END ==
PROVIDERS: Visit Provider Physician Assistant
DX: I25.10 Atherosclerotic heart disease of native coronary artery without angina pectoris (principal); I48.91 Unspecified atrial fibrillation; E78.5 Hyperlipidemia, unspecified; E66.9 Obesity, unspecified; I10 Essential (primary) hypertension
CPT/HCPCS: 36415; 80048

== ENCOUNTER → 2019-12-08 09:15 | Outpatient (CLI) | payer BC, SELFPAY ==
--- NOTE | 2019-12-08 09:16 | CA_ITS ---
APPROVED REPORT Supervisor Rod Placing: Blessing Lee RVT Study Quality: Good Indications: HTN Risk Factors Hypertension Obesity Diabetes Surgery/Intervention Renal Artery Stent : Renal Artery Doppler Proximal (R) 99.7/ cm/sec Mid (R) 56.5/ cm/sec Distal (R) 65.5/ cm/sec Renal Aorta Ratio (R) 2.09 Segmental A. (R) 45.3/15.8 cm/sec RI: 0.65 Segmental A. Sup (R) 33.8/7.2 cm/sec Segmental A. Mid (R) 43.2/12.2 cm/sec Segmental A. Inf (R) 45.3/15.8 cm/sec Proximal (L) 121.5/ cm/sec Mid (L) 112.7/ cm/sec Distal (L) 100.5/ cm/sec Renal Aorta Ratio (L) 2.55 Segmental A. (L) 41.4/10.1 cm/sec RI: 0.75 Segmental A. Sup (L) 36.0/12.0 cm/sec Segmental A. Mid (L) 28.2/9.3 cm/sec Segmental A. Inf (L) 41.4/10.1 cm/sec Renal Measurements Kidney Size (R) 8.4x6.5 cm Cortical Thickness (R) 1.1 cm Kidney Size (L) 15.5x8.4 cm Cortical Thickness (L) 2.2 cm Findings Study suggests no evidence of stenosis in the bilateral renal arteries. 1.1 x 1.2 cm cystic lesion upper pole of left kidney. 2.7 X 3.1 cm sepated cystic lesion mid pole of left kidney. 1.7 cm hyperechoic focus with shadowing seen mid pole of left kidney, probable non-obstructing nephrolithiasis. Conclusion Study suggests no evidence of stenosis in the bilateral renal arteries. 1.1 x 1.2 cm cystic lesion upper pole of left kidney. 2.7 X 3.1 cm sepated cystic lesion mid pole of left kidney. 1.7 cm hyperechoic focus with shadowing seen mid pole of left kidney, probable non-obstructing nephrolithiasis. Electronically signed by : Renny Salinas MD 12/08/2019 17:21:24
--- NOTE | 2019-12-08 10:13 | US_ITS ---
PROCEDURE: US KIDNEY CLINICAL INDICATION: Sign [facility] a here the unless there used the lid calcis on hannah there your 80 without okay the COMPARISON: US US KIDNEY from 03/31/2019 US CA RENAL ARTERY DUPLEX from 12/08/2019 FINDINGS: The right kidney is [id number]. No hydronephrosis, cortical thinning, or renal mass or perinephric fluid collection is evident. The left kidney is [id number]. No hydronephrosis, cortical thinning, or renal mass or perinephric fluid collection is evident. There is a septated cyst in the upper pole of the left kidney at 3 x 3 cm and a smaller cyst in the upper pole at 9 mm. Echogenic foci are present within the left kidney consistent with left nephrolithiasis. IMPRESSION: 1. No evidence of hydronephrosis. 2. 3 cm septated left renal cyst 3. Left nephrolithiasis. Dictated by: Renny Salinas MD 12/08/2019 15:54 Renny Salinas MD in [place] 12/08/2019 15:54
== END ==
PROVIDERS: PCP Family Medicine; Visit Provider Physician Assistant
DX: I10 Essential (primary) hypertension (principal); E11.69 Type 2 diabetes mellitus with other specified complication; E66.01 Morbid (severe) obesity due to excess calories; E66.9 Obesity, unspecified; E78.2 Mixed hyperlipidemia; I25.10 Atherosclerotic heart disease of native coronary artery without angina pectoris; I48.20 Chronic atrial fibrillation, unspecified
CPT/HCPCS: 76770; 93976

== ENCOUNTER → 2020-01-01 10:27 | Outpatient (CLI) | payer BC, SELFPAY ==
[2020-01-01 11:22] LABS: Basophils % 0.4 % (0.1-2.0); Eosinophils % 0.1 % (0.1-12.0); Hematocrit 56.4 % (42.0-52.0); Lymphocytes # 0.8 K/mm3 (0.7-4.5); Lymphocytes % 12.5 % (10-50); Mean Corpuscular HGB Conc 33.2 g/dL (31.8-35.4); Mean Corpuscular Hemoglobin 32.8 pg (27.0-31.2); Mean Corpuscular Volume 98.9 fl (80-94); Mean Platelet Volume 8.7 fl (7.4-10.4); Monocytes # 0.7 K/mm3 (0.1-1.0); Monocytes % 10.3 % (1.7-9.3); Neutrophils % 76.7 % (37.0-80.0); Platelet Count 230 K/mm3 (142-424); Red Cell Distribution Width 13.7 % (11.5-17.5); White Blood Count 6.5 K/mm3 (4.8-10.8)
[2020-01-01 11:30] LABS: Hemoglobin 18.6 g/dL (14.1-18.0)
[2020-01-01 11:44] LABS: Chloride 99 mmol/L (98-107); Potassium 4.6 mmoL/L (3.5-5.1); Sodium 138 mmol/L (136-145)
[2020-01-01 11:47] LABS: Anion Gap 14.6 mEq/L (5-15); Blood Urea Nitrogen 20 mg/dl (9-20); Calcium 9.4 mg/dl (8.4-10.2); Carbon Dioxide 29 mmol/L (22.0-30.0); Estimated Glomerular Filt Rate 67 ml/min (>60); GFR (African American) 82 ML/MIN (>60); Glucose 146 mg/dl (74-100)
[2020-01-01 12:03] LABS: Free T4 (Free Thyroxine) 1.14 ng/dl (0.78-2.19)
[2020-01-01 12:19] LABS: Thyroid Stimulating Hormone 5.89 uIU/mL (0.465-4.68); Troponin I < 0.01 ng/ml (0.00-0.034)
== END ==
PROVIDERS: Visit Provider Urology
DX: I25.10 Atherosclerotic heart disease of native coronary artery without angina pectoris (principal); I48.20 Chronic atrial fibrillation, unspecified; E78.2 Mixed hyperlipidemia; I10 Essential (primary) hypertension; R53.83 Other fatigue; E66.01 Morbid (severe) obesity due to excess calories
CPT/HCPCS: 36415; 80048; 84439; 84443; 84484; 85025

== ENCOUNTER → 2020-01-02 08:44 | Outpatient (CLI) | payer BC, SELFPAY ==
--- NOTE | 2020-01-02 08:49 | XR_ITS ---
PROCEDURE: XR CHEST PORTABLE CLINICAL HISTORY: COVID OUTPATIENT Smoker, cough, loss of appetite COMPARISON: No exams were available for comparison FINDINGS: Mild cardiomegaly without failure. There is patchy peripheral subtle attenuation involving both lower lobes consistent with bilateral pneumonia. No effusions No acute bony abnormalities. IMPRESSION: Cardiomegaly with patchy subtle peripheral pneumonia. COVID 19/atypical pneumonia is considered Dictated by: Renny Salinas MD 01/02/2020 10:05 Renny Salinas MD in [place] 01/02/2020 10:05
[2020-01-02 09:38] LABS: Basophils # 0.1 K/mm3 (0-0.2); Basophils % 0.6 % (0.1-2.0); Eosinophils % 0.2 % (0.1-12.0); Hematocrit 55.2 % (42.0-52.0); Lymphocytes # 0.9 K/mm3 (0.7-4.5); Lymphocytes % 10.9 % (10-50); Mean Corpuscular HGB Conc 33.4 g/dL (31.8-35.4); Mean Corpuscular Volume 98.8 fl (80-94); Mean Platelet Volume 8.2 fl (7.4-10.4); Monocytes # 0.8 K/mm3 (0.1-1.0); Monocytes % 9.8 % (1.7-9.3); Neutrophils # 6.2 K/mm3 (1.8-7.8); Neutrophils % 78.5 % (37.0-80.0); Platelet Count 256 K/mm3 (142-424); Red Blood Count 5.59 M/mm3 (4.60-6.20); Red Cell Distribution Width 13.6 % (11.5-17.5); White Blood Count 7.9 K/mm3 (4.8-10.8)
[2020-01-02 11:55] LABS: Hemoglobin 18.3 g/dL (14.1-18.0)
[2020-01-04 09:25] LABS: Erythropoietin 11.1 mIU/mL (2.6-18.5)
[2020-01-04 09:27] LABS: Peripheral Smear Review Scanned Result
== END ==
PROVIDERS: PCP Family Medicine; Visit Provider Family Medicine
DX: Z20.828 Contact with and (suspected) exposure to other viral communicable diseases (principal); U07.1 COVID-19; R05 Cough; R53.81 Other malaise; D45 Polycythemia vera
CPT/HCPCS: 36415; 71045; 82668; 85025; U0003

== ENCOUNTER → 2020-01-22 08:20 | Outpatient (CLI) | payer BC, SELFPAY ==
--- NOTE | 2020-01-22 08:20 | CA_ITS ---
APPROVED REPORT EXAM: Comprehensive 2D, Doppler, and color-flow Echocardiogram [place]: Ludivina Wen CRT Ht: 5 ft 7 in Wt: 241lbs BSA: 2.19 BP: 125/90 mmHg Indications: Atrial Fibrillation, Peripheral Edema 2D Dimensions LVOT 1.99 cm (M/F) 1.5-2.5 M-Mode Dimensions RVDd 3.31 cm (0.9-2.6) LA Diam 5.13 cm (1.9-4.0) LVDd 4.07 cm (3.5-5.7) Ao Diam 3.64 cm (2.0-3.7) LVDs 2.77 cm (3.5-5.7) IVSd 1.82 cm (0.6-1.1) PWd 0.61 cm (0.6-1.1) EF (Teich) 60.50% FS 31.90% EDV (Teich) 72.90 mL ESV (Teich) 28.80 mL LV Diastology E Decel Time 150.00 (160-240 msec) E/A Ratio 0.42 Aortic Valve AO Peak GR. 2.90 mmHg Mitral Valve MV E Max Chance. 104.00 (40-130 cm/s) MV A Velocity 249.00 (40-130 cm/s) E/A Ratio 0.42 MV Decel. Time 150.00 (160-240 ms) MV PHT 44.00 ms Pulmonary Valve PV Peak Velocity 97.00 (50-150 cm/s) Tricuspid Valve TR P. Velocity 251.00 cm/s RAP Estimate 10.00 mmHg RVSP 35.20 mmHg Left Ventricle Technically difficult study because of the patient factors and poor acoustic windows. Left atrium is mildly enlarged, left ventricle is normal size, mild concentric left ventricular hypertrophy, visually estimated ejection fraction 55% with no regional wall motion abnormality, endocardial surfaces are very poorly visualized. Diastolic parameters are inconclusive. Right Ventricle Right atrium and right ventricle are mildly enlarged with normal contractility. Aortic Valve Aortic valve is minimally thickened and fibrosed leaflet chordae display good mobility, there is no aortic stenosis or aortic insufficiency. Mitral Valve Mitral valve is grossly normal, there is mild mitral regurgitation. Tricuspid Valve Tricuspid valve is grossly normal, there is mild tricuspid regurgitation. Pulmonic Valve Pulmonic valve is poorly visualized. Great Vessels Aortic root is normal size. Pericardium No significant pericardial effusion noted. Conclusion 1. Biatrial enlargement, normal left ventricular size, mild concentric left ventricular hypertrophy, visually estimated ejection fraction 55% with no regional wall motion abnormality, diastolic parameters are inconclusive. 2. Mildly enlarged right ventricle with normal contractility. 3. Mild mitral and tricuspid regurgitation. 4. No significant pericardial effusion noted. Electronically signed by : Oseas Swenson, 01/23/2020 05:52:26
== END ==
PROVIDERS: PCP Family Medicine; Visit Provider Urology
DX: I25.10 Atherosclerotic heart disease of native coronary artery without angina pectoris (principal); R42 Dizziness and giddiness; I48.91 Unspecified atrial fibrillation; E66.9 Obesity, unspecified; E78.5 Hyperlipidemia, unspecified; I10 Essential (primary) hypertension
CPT/HCPCS: 93306

== ENCOUNTER → 2020-08-15 12:02 | Outpatient (CLI) | payer BC, SELFPAY ==
[2020-08-15 13:08] LABS: Anion Gap 16.9 mEq/L (5-15); Blood Urea Nitrogen 18 mg/dl (9-20); Calcium 9.6 mg/dl (8.4-10.2); Carbon Dioxide 24 mmol/L (22.0-30.0); Chloride 104 mmol/L (98-107); Estimated Glomerular Filt Rate 67 ml/min (>60); GFR (African American) 82 ML/MIN (>60); Glucose 128 mg/dl (74-100); Potassium 4.9 mmoL/L (3.5-5.1); Sodium 140 mmol/L (136-145)
== END ==
PROVIDERS: Visit Provider Nurse Practitioner Family
DX: I25.10 Atherosclerotic heart disease of native coronary artery without angina pectoris (principal); R60.0 Localized edema; I48.20 Chronic atrial fibrillation, unspecified
CPT/HCPCS: 36415; 80048

== ENCOUNTER → 2021-06-24 11:24 | Outpatient (CLI) | payer BC, MEDICARE, SELFPAY ==
[2021-06-24 12:45] LABS: Basophils # 0.1 K/mm3 (0-0.2); Eosinophils # 0.1 K/mm3 (0.0-0.4); Eosinophils % 1.1 % (0.1-12.0); Hematocrit 49.5 % (42.0-52.0); Hemoglobin 16.5 g/dL (14.1-18.0); Lymphocytes # 1.2 K/mm3 (0.7-4.5); Lymphocytes % 12.7 % (10-50); Mean Corpuscular HGB Conc 33.3 g/dL (31.8-35.4); Mean Corpuscular Hemoglobin 32.8 pg (27.0-31.2); Mean Corpuscular Volume 98.4 fl (80-94); Mean Platelet Volume 9.1 fl (7.4-10.4); Monocytes # 0.7 K/mm3 (0.1-1.0); Monocytes % 7.5 % (1.7-9.3); Neutrophils # 7.2 K/mm3 (1.8-7.8); Neutrophils % 77.7 % (37.0-80.0); Platelet Count 251 K/mm3 (142-424); Red Blood Count 5.03 M/mm3 (4.60-6.20); Red Cell Distribution Width 13.9 % (11.5-17.5); White Blood Count 9.2 K/mm3 (4.8-10.8)
[2021-06-24 13:09] LABS: Chloride 107 mmol/L (98-107); Sodium 138 mmol/L (136-145)
[2021-06-24 13:10] LABS: Potassium 4.4 mmoL/L (3.5-5.1)
[2021-06-24 13:12] LABS: Alanine Aminotransferase 81 U/L (12-78); Albumin Level 4.1 g/dl (3.5-5.0); Alkaline Phosphatase 57 U/L (38-126); Anion Gap 14.4 mEq/L (5-15); Aspartate Amino Transferase 50 U/L (17-59); Bilirubin,Direct 0.1 mg/dl (0.0-0.4); Bilirubin,Indirect 0.4 mg/dL (0.0-0.9); Bilirubin,Total 0.5 mg/dl (0.2-1.3); Bilirubin,Unconjugated 0.4 mg/dL (0.0-1.1); Blood Urea Nitrogen 19 mg/dl (9-20); Calcium 9.5 mg/dl (8.4-10.2); Carbon Dioxide 21 mmol/L (22.0-30.0); Cholesterol 111 mg/dl (140-200); Estimated Glomerular Filt Rate 67 ml/min (>60); GFR (African American) 81 ML/MIN (>60); Glucose 183 mg/dl (74-100); Magnesium 1.8 mg/dl (1.6-2.3); Total Protein,Serum 6.6 g/dl (6.3-8.2); Triglycerides 144 mg/dl (30-150); VLDL Cholesterol 29 mg/dL (0-40)
[2021-06-24 13:24] LABS: Direct LDL Cholesterol 49.27 mg/dL (100-129)
[2021-06-24 13:27] LABS: Free T4 (Free Thyroxine) 0.75 ng/dl (0.78-2.19)
[2021-06-24 13:41] LABS: Thyroid Stimulating Hormone 4.75 uIU/mL (0.465-4.68)
[2021-06-24 15:10] LABS: Chol/HDL Ratio 2.4 (1-3.5); HDL Cholesterol 47 mg/dl (40-60)
== END ==
PROVIDERS: Visit Provider Nurse Practitioner
DX: I25.10 Atherosclerotic heart disease of native coronary artery without angina pectoris (principal); I10 Essential (primary) hypertension; I48.20 Chronic atrial fibrillation, unspecified; E78.2 Mixed hyperlipidemia; E66.01 Morbid (severe) obesity due to excess calories; Z68.37 Body mass index [BMI] 37.0-37.9, adult
CPT/HCPCS: 36415; 80048; 80061; 80076; 83735; 84439; 84443; 85025

== ENCOUNTER → 2021-12-30 08:50 | Outpatient (CLI) | payer BC, MEDICARE, SELFPAY ==
--- NOTE | 2021-12-30 08:58 | US_ITS ---
FINAL REPORT CLINICAL HISTORY: claudication with ambulation, DM, HLD, CAD, CVA, SD, HTN FINDINGS: ANKLE-BRACHIAL PRESSURE INDICES Pressure indices are as follows: RIGHT LOWER EXTREMITY: Ankle-brachial pressure index: 0.93 Comments: Mildly depressed LEFT LOWER EXTREMITY: Ankle-brachial pressure index: 0.97 Comments: Mildly depressed CONCLUSION: No evidence of significant obstructive peripheral vascular disease of the lower extremities Reviewed, Interpreted and Dictated by Jalen Lopez MD Transcribed by Hermila Lawrence Authenticated and . [facility]
== END ==
PROVIDERS: PCP Family Medicine; Visit Provider Internal Medicine
DX: I70.213 Atherosclerosis of native arteries of extremities with intermittent claudication, bilateral legs (principal); I25.10 Atherosclerotic heart disease of native coronary artery without angina pectoris; I48.20 Chronic atrial fibrillation, unspecified; I10 Essential (primary) hypertension; E78.2 Mixed hyperlipidemia
CPT/HCPCS: 93923

== ENCOUNTER → 2022-06-25 11:04 | Outpatient (CLI) | payer BC, MEDICARE, SELFPAY ==
[2022-06-25 12:23] LABS: Basophils # 0.1 K/mm3 (0-0.2); Basophils % 0.7 % (0.1-2.0); Eosinophils # 0.1 K/mm3 (0.0-0.4); Eosinophils % 1.2 % (0.1-12.0); Hematocrit 54.8 % (42.0-52.0); Hemoglobin 17.4 g/dL (14.1-18.0); Lymphocytes # 1.4 K/mm3 (0.7-4.5); Lymphocytes % 19.4 % (10-50); Mean Corpuscular HGB Conc 31.8 g/dL (31.8-35.4); Mean Corpuscular Hemoglobin 31.3 pg (27.0-31.2); Mean Corpuscular Volume 98.6 fl (80-94); Mean Platelet Volume 8.8 fl (7.4-10.4); Monocytes # 0.7 K/mm3 (0.1-1.0); Monocytes % 9.1 % (1.7-9.3); Neutrophils % 69.7 % (37.0-80.0); Platelet Count 228 K/mm3 (142-424); Red Blood Count 5.56 M/mm3 (4.60-6.20); Red Cell Distribution Width 13.9 % (11.5-17.5); White Blood Count 7.2 K/mm3 (4.8-10.8)
[2022-06-25 12:48] LABS: Chloride 99 mmol/L (98-107); Potassium 4.4 mmoL/L (3.5-5.1); Sodium 137 mmol/L (136-145)
[2022-06-25 12:50] LABS: Alanine Aminotransferase 65 U/L (12-78); Alkaline Phosphatase 56 U/L (38-126); Anion Gap 20.4 mEq/L (5-15); Aspartate Amino Transferase 51 U/L (17-59); Bilirubin,Indirect 0.6 mg/dL (0.0-0.9); Bilirubin,Total 0.6 mg/dl (0.2-1.3); Bilirubin,Unconjugated 0.6 mg/dL (0.0-1.1); Blood Urea Nitrogen 20 mg/dl (9-20); Carbon Dioxide 22 mmol/L (22.0-30.0); Estimated Glomerular Filt Rate 61 ml/min (>60); GFR (African American) 73 ML/MIN (>60)
[2022-06-25 12:51] LABS: Albumin Level 4.4 g/dl (3.5-5.0); Calcium 9.4 mg/dl (8.4-10.2); Chol/HDL Ratio 2.5 (1-3.5); Cholesterol 106 mg/dl (140-200); Glucose 171 mg/dl (74-100); HDL Cholesterol 42 mg/dl (40-60); Total Protein,Serum 7.1 g/dl (6.3-8.2); Triglycerides 146 mg/dl (30-150); VLDL Cholesterol 29 mg/dL (0-40)
[2022-06-25 13:02] LABS: Direct LDL Cholesterol 58.32 mg/dL (100-129)
[2022-06-25 13:08] LABS: Free T4 (Free Thyroxine) 0.79 ng/dl (0.78-2.19)
[2022-06-25 13:22] LABS: Thyroid Stimulating Hormone 6.55 uIU/mL (0.465-4.68)
== END ==
PROVIDERS: PCP Family Medicine; Visit Provider Nurse Practitioner
DX: R06.00 Dyspnea, unspecified (principal); I25.10 Atherosclerotic heart disease of native coronary artery without angina pectoris; I10 Essential (primary) hypertension; I48.20 Chronic atrial fibrillation, unspecified; E78.2 Mixed hyperlipidemia; R60.0 Localized edema
CPT/HCPCS: 36415; 80048; 80061; 80076; 83735; 84439; 84443; 85025

== ENCOUNTER → 2022-07-03 12:04 | Outpatient (CLI) | payer BC, MEDICARE, SELFPAY ==
--- NOTE | 2022-07-03 | CA_ITS ---
APPROVED REPORT Exam: Pharmacologic Technologist: Madiha Pires, Ht: 5 ft 7 in Wt: 245 lbs BSA: 2.20 m2 HR: 72 bpm BP: 142/101 mmHg Rhythm: AFIB Medical History Medical History: HTN, Hyperlipidemia, Diabetes, Smoking Medications: Farxiga,,,,, XaRELTO,,,,, TAMSULOSIN,,,,, Norvasc,,,,, Levetiracetam,,,,, SpirOnolactone,,,,, RoSUVASTATIN,,,,, MetoFORMIN,,,,, BisOPROLOL HCTZ,,,,, Lisnopril,,,,, Allergies: No known drug allergies Cardiac Risk Factors: HTN, Hyperlipidemia, Diabetes , Smoking Stress Test Details Test: LEXISCAN HR Resting HR: 66 bpm Max Heart Rate (APMHR): 154 bpm Max HR Achieved: 87 bpm Target HR (85% APMHR): 131 bpm % of APMHR: 56 Recovery HR: 76 bpm BP Resting BP: 142/101 mmHg Max BP: 149/86 mmHg Recovery BP: 143.0/95.0 mmHg ECG Resting ECG: Atrial fibrillation, non-specific T-wave changes in inferolateral leads Stress ECG: No change Clinical Exercise duration: 04:00 min Highest Stage Achieved: Stress ECG Conclusion PT HAD WEAKNES AND NAUSEA CHRONIC AFIB NON-SPECIFIC T-WAVE PRESENT IN THE INFEROLATERAL LEADS AT BASELINE NO ISCHEMIC CHANGES Test Summary REST . . . . . . . Sitting REST 03:15 . . 66 . 142/101 . . Stage 1 . . . . . . . Myoview Injected Stage 1 01:00 . . 76 . . . . Stage 2 01:00 . . 83 . 139/ 91 . . Stage 3 01:00 . . 74 . 149/ 86 . . Stage 4 01:00 . . 68 . 134/ 97 . Stop exercise at 04:00 RECOVERY 01:00 . . 71 . . . . RECOVERY 01:56 . . 80 . 143/ 95 . . Electronically signed by : Sharon Brito, 07/03/2022 21:52:34
--- NOTE | 2022-07-03 12:04 | NM_ITS ---
APPROVED REPORT Exam: Nuclear Stress Test Indication: CAD, H/I VT, 6 STENTS, HTN, DM, HYPERLIPIDEMIA, TOB USE, FM HX, FATIGUE Patient Location: Outpatient Stress Tech: Madiha Pires [place] Tech:ASTON Gill RT(R)(N) Ht: 5 ft 7 in Wt: 240 lbs HR: 66 bpm BP: 142/101 mmHg BSA: 2.19 m2 TID: 1.16 BMI: 37.5 History: CAD, H/I VT, 6 STENTS, HTN, DM, HYPERLIPIDEMIA, TOB USE, FM HX, FATIGUE Procedure: Patient received 0.4 mg of intravenous Lexiscan, resting heart rate 66 bpm, resting blood pressure 142/101 mmHg, with Lexiscan maximum heart rate achieved was 87 bpm which is % of the maximum predicted heart rate and blood pressure was 149/86 mmHg. With Lexiscan, patient denied any complaint of chest pain. Cardiac Stress and Resting SPECT Images: Cardiac Stress and Resting SPECT images were obtained using technetium 99m Myoview 32.9 mCi stress and 10.78 mCi at rest. Resting and stress imaging demonstrate a large-sized, moderate, fixed perfusion defect in the inferior and inferoseptal LV wall. There is also a medium-sized, mild, fixed perfusion defect present in the mid to distal anterior LV wall. Gated images demonstrate a normal LV global systolic function. There is moderate hypokinesis in the inferior and inferoseptal LV wall and mild hypokinesis in the mid anterior LV wall. LVEF is calculcated at 60% Conclusion: Large-sized, moderate, fixed perfusion defect in the inferior and inferoseptal LV wall. Medium-sized, mild, fixed perfusion defect in the mid to distal anterior LV wall. No definite reversible ischemia. Gated images demonstrate a normal LV global systolic function. There is moderate hypokinesis in the inferior and inferoseptal LV wall and mild hypokinesis in the mid anterior LV wall. LVEF is calculcated at 60% Electronically signed by : Sharon Brito, 07/03/2022 22:04:35
== END ==
PROVIDERS: PCP Family Medicine; Visit Provider Nurse Practitioner
DX: R06.09 Other forms of dyspnea (principal); I48.20 Chronic atrial fibrillation, unspecified; I25.10 Atherosclerotic heart disease of native coronary artery without angina pectoris; I10 Essential (primary) hypertension; E78.2 Mixed hyperlipidemia; R60.0 Localized edema
CPT/HCPCS: 78452; 93017; 93306; A9502; J2785

== ENCOUNTER 2023-01-29 20:24 | Emergency (ER) | payer BC, MEDICARE, SELFPAY ==
[2023-01-29 20:25] VITALS: BP 111/75; PULSE 102; RESP 20; TEMP 36.9; O2SAT 95; BMI 37.5
[2023-01-29 20:38] VITALS: BP 111/75; PULSE 97; RESP 23; O2SAT 95
--- NOTE | 2023-01-29 20:38 | ECG_ITS ---
APPROVED REPORT Exam: Resting ECG HR:104 bpm ECG Measurements Heart Rate 104 AXES QRSd 87 QRS 17 QT 361 T -31 QTc 421 Conclusion ATRIAL FIBRILLATION WITH RAPID VENTRICULAR RESPONSE NONSPECIFIC ST & T-WAVE ABNORMALITY ABNORMAL RHYTHM ECG UNCONFIRMED REPORT Electronically signed by : Dilan Brady MD 01/31/2023 07:34:34
[2023-01-29 20:39] VITALS: BMI 37.5
--- NOTE | 2023-01-29 20:41 | XR_ITS ---
PROCEDURE INFORMATION: Exam: XR Chest Exam date and time: 01/29/2023 8:49 PM Age: 67 years old Clinical indication: Shortness of breath; Additional info: SOA TECHNIQUE: Imaging protocol: Radiologic exam of the chest. Views: 2 views. COMPARISON: CR XR CHEST PORTABLE 01/02/2020 9:10 AM FINDINGS: Lungs: Unremarkable. No consolidation. Pleural spaces: Unremarkable. No pleural effusion. No pneumothorax. Heart/Mediastinum: Mild cardiac enlargement. Vasculature: Mild aortic tortuosity. Bones/joints: Unremarkable. IMPRESSION: Cardiomegaly. No acute process.
[2023-01-29 20:50] LABS: Basophils % 0.3 % (0.1-2.0); Eosinophils % 0.2 % (0.1-12.0); Hematocrit 52.6 % (42.0-52.0); Hemoglobin 17.3 g/dL (14.1-18.0); Lymphocytes # 0.9 K/mm3 (0.7-4.5); Lymphocytes % 5.9 % (10-50); Mean Corpuscular Hemoglobin 32.2 pg (27.0-31.2); Mean Corpuscular Volume 97.7 fl (80-94); Mean Platelet Volume 9.3 fl (7.4-10.4); Monocytes # 1.2 K/mm3 (0.1-1.0); Monocytes % 8.1 % (1.7-9.3); Neutrophils # 12.8 K/mm3 (1.8-7.8); Neutrophils % 85.6 % (37.0-80.0); Platelet Count 207 K/mm3 (142-424); Red Blood Count 5.38 M/mm3 (4.60-6.20); White Blood Count 14.9 K/mm3 (4.8-10.8)
[2023-01-29 20:51] LABS: MANUAL DIFFERENTIAL MANUAL DIFFERENTIAL (MANUAL DIFF)
[2023-01-29 20:51] LABS: VBG Base Excess -3.2 mmol/L (-2.4-2.3); VBG HCO3 21.5 mmol/L (23-30); VBG Oxygen Saturation 66.6 % (50-70); VBG PCO2 35.5 mmol/L (35-51); VBG PO2 32.8 mmol/L (28-40); VBG Total CO2 22.6 mmol/L (23-27)
[2023-01-29 20:57] LABS: Alanine Aminotransferase 38 U/L (12-78); Alkaline Phosphatase 62 U/L (38-126); Aspartate Amino Transferase 33 U/L (17-59); Blood Urea Nitrogen 22 mg/dl (9-20); Carbon Dioxide 21 mmol/L (22.0-30.0); Chloride 100 mmol/L (98-107); Creatinine Clearance Estimated 79 mL/min (50-200); Estimated Glomerular Filt Rate 51 ml/min (>60); GFR (African American) 61 ML/MIN (>60)
[2023-01-29 20:58] LABS: Albumin Level 4.8 g/dl (3.5-5.0); Albumin/Globulin Ratio 1.2 (1.1-1.8); Anion Gap 15.3 mEq/L (5-15); Globulin 3.9 g/dL (1.3-3.2); Glucose 199 mg/dl (74-100); Potassium 4.3 mmoL/L (3.5-5.1); Sodium 132 mmol/L (136-145); Total Protein,Serum 8.7 g/dl (6.3-8.2)
[2023-01-29 21:05] LABS: Lymphocytes % 4 % (10-50); Monocytes % 10 % (2-9); Neutrophils % 86 % (42-76); Total Cells Counted 100
[2023-01-29 21:06] LABS: Platelet Estimate Normal; RBC Morphology Normal
[2023-01-29 21:07] LABS: NT Pro Brain Natriuretic Pep. 3000 pg/mL (0-125)
--- NOTE | 2023-01-29 21:07 | HMH.EDGENADL ---
Discharge Plan Disposition Patient Disposition: Home, Self-Care Chief Complaint: Weakness Prescriptions Prescriptions: No Action Farxiga 5 mg tablet 10 mg PO DAILY levetiracetam 750 mg tablet 750 mg PO BID metformin 500 mg tablet 500 mg PO BID Patient Comments: TAKE 1 TABLET BY MOUTH TWICE DAILY WITH A MEAL tamsulosin 0.4 mg capsule 0.4 mg PO DAILY lisinopril 40 mg tablet 40 mg PO DAILY Qty: 90 3RF aspirin [Adult Low Dose Aspirin] 81 mg tablet,delayed release (DR/EC) 81 mg PO DAILY Qty: 30 2RF rosuvastatin 20 mg tablet 20 mg PO DAILY Qty: 90 3RF amlodipine [Norvasc] 5 mg tablet 5 mg PO DAILY Qty: 90 3RF bisoprolol-hydrochlorothiazide 10-6.25 mg tablet See Rx Instructions .ROUTE .COMPLEX Qty: 180 1RF Dose Instruction: Take 1 tablet by mouth twice daily Rx Instructions: Take 1 tablet by mouth twice daily spironolactone 25 mg tablet See Rx Instructions .ROUTE .COMPLEX Qty: 90 3RF Dose Instruction: Take 1 tablet by mouth once daily Rx Instructions: Take 1 tablet by mouth once daily Xarelto 20 mg tablet 20 mg PO DAILY Qty: 90 3RF Referrals Follow up/Referrals: Randi Lees MD [Primary Care Provider] - See instructions Activity Restrictions/Add. Instructions Additional Instructions/Restrictions: Follow-up with your family doctor regarding this visit to the emergency department and to have labs redrawn, including BNP and kidney function within 48 business hours. If you have any worsening of your condition or any other concerning signs or symptoms, return to the emergency department or your primary care doctor for further evaluation. Clinical Impressions Clinical Impression: CHF exacerbation Qualifiers: Heart failure type: unspecified Qualified Code(s): I50.9 - Heart failure, unspecified Discharge ED Provider: Jass Ladd General Adult HPI General Chief complaint: Weakness Stated complaint: SOA Time Seen by Provider: 01/29/23 20:32 Mode of Arrival: Wheelchair Source of Information: Patient and Relative Limitations: No Limitations Description of Symptoms (Recalled from ER Triage Doc. by RN): Patient reports increasing shortness of breath and weakness and fatigue for the past 4 days. Patient also reports increasing leg pains. Patient denies fever, cough. History of Present Illness HPI narrative: 67-year-old male history of hypertension, hyperlipidemia, type 2 diabetes, A-fib currently on Xarelto, intracranial bleed secondary to AVM, intra-abdominal bleed presenting with generalized weakness and shortness of breath. Patient states that getting generally weak over the past couple of days, minimal p.o. intake. Because of this he is feeling weak. Feeling short of breath at rest and with exertion, no chest pain, nausea or vomiting, diaphoresis, or any other concerns. No sick symptoms. Patient states he has been taking all his medications per usual, but feeling nauseated with p.o. intake. Related Data Home Medications Medication Instructions Recorded Confirmed dapagliflozin propanediol 5 mg 10 mg PO DAILY 12/05/19 01/29/23 tablet (Farxiga) levetiracetam 750 mg tablet 750 mg PO BID 08/08/20 01/29/23 metformin 500 mg tablet 500 mg PO BID 08/08/20 01/29/23 tamsulosin 0.4 mg capsule 0.4 mg PO DAILY 08/08/20 01/29/23 Previous Rx's Medication Instructions Recorded lisinopril 40 mg tablet 40 mg PO DAILY #90 tabs 12/25/21 aspirin 81 mg tablet,delayed 81 mg PO DAILY #30 tabs 07/06/22 release (Adult Low Dose Aspirin) amlodipine 5 mg tablet (Norvasc) 5 mg PO DAILY #90 tabs 12/29/22 rosuvastatin 20 mg tablet 20 mg PO DAILY Cholesterol #90 tabs 12/29/22 bisoprolol 10 See Rx Instructions .Route 01/25/23 mg-hydrochlorothiazide 6.25 mg .COMPLEX #180 tabs tablet rivaroxaban 20 mg tablet (Xarelto) 20 mg PO DAILY #90 tabs 01/25/23 spironolactone 25 mg tablet See Rx Instructions .Route 01/25/23 .COMPLEX #90 tabs Allerg
[2023-01-29 21:09] LABS: Troponin I < 0.01 ng/ml (0.00-0.034)
[2023-01-29 21:31] VITALS: BP 115/64; PULSE 78; RESP 18; O2SAT 97
[2023-01-29 21:49] VITALS: BP 121/73; PULSE 88; RESP 17; O2SAT 96
--- NOTE | 2023-01-29 21:52 | PC.NURSE ---
pt and spouse given cold drink
[2023-01-29 22:47] LABS: Microscopic, Urine URINE MICROSCOPIC (MICROSCOPIC)
[2023-01-29 22:51] LABS: Appearance,Urine CLEAR (Clear); Bilirubin,Urine Negative (Negative); Blood, Urine 3+ (Negative); Color,Urine YELLOW (Yellow); Glucose,Urine (UA) 3+ (Negative); Ketones,Urine Negative (Negative); Leukocyte Esterase,Urine Negative (Negative); Nitrate,Urine Negative (Negative); Protein,Urine Negative (Negative); Urobilinogen,Urine 0.2 EU/dl (0.2)
[2023-01-29 23:02] VITALS: BP 159/117; PULSE 90; O2SAT 94
[2023-01-29 23:11] LABS: Bacteria,Urine Trace /lpf; RBC,Urine 20-50 #/hpf (0-3); WBC,Urine Occasional #/hpf (0-3)
[2023-01-29 23:14] VITALS: BP 120/70; PULSE 90; RESP 18; TEMP 36.7; O2SAT 95
== END 2023-01-29 23:25 | disposition home or self-care (01) ==
PROVIDERS: Emergency Provider Emergency Medicine; PCP Family Medicine
DX: R06.02 Shortness of breath (principal); R53.1 Weakness; R53.83 Other fatigue; I11.0 Hypertensive heart disease with heart failure; I50.9 Heart failure, unspecified; I48.91 Unspecified atrial fibrillation; E78.5 Hyperlipidemia, unspecified; E11.9 Type 2 diabetes mellitus without complications; F17.210 Nicotine dependence, cigarettes, uncomplicated; Z79.01 Long term (current) use of anticoagulants; R00.0 Tachycardia, unspecified; D72.829 Elevated white blood cell count, unspecified
CPT/HCPCS: 71046; 80053; 81001; 82803; 83880; 84484; 85007; 85025; 93005; 96361; 96374; 99285

== ENCOUNTER 2023-02-19 08:19 | Day surgery (SDC) | payer BC, MEDICARE, SELFPAY ==
[2023-02-19] VITALS (17 sets, daily range): BP systolic 113–169; BP diastolic 67–114; PULSE 62–95; RESP 15–19; O2SAT 95–98; BMI 37.5
--- NOTE | 2023-02-19 07:10 | IR_ITS ---
APPROVED REPORT PROCEDURES Left heart catheterization Left ventriculogram Selective coronary angiogram Drug-eluting stent deployment to the circumflex artery extending down into the first obtuse marginal artery INDICATION Coronary artery disease, Abnormal Myoview, Angina pectoris, In-stent restenosis, Informed consent was obtained prior to the procedure. COMPLICATIONS NONE Estimated Blood Loss: LESS THAN 10 ML TECHNIQUE One percent lidocaine used to anesthetize the right anterior aspect of the wrist. The right radial artery was accessed via the Seldinger technique. A 6 Syriac sheath was placed in the right radial artery. 2.5 mg of Verapamil, 800 mcg of nitroglycerin, 1mg Lidocaine and 5000 U Heparin were given through the arterial sheath. The papa catheter was also used to perform left heart catheterization, left ventriculogram and selective coronary angiogram. At the end the diagnostic angiogram therapeutic heparin was administered giving a therapeutic ACT and the guide catheter was placed in left main artery followed by Choice PT extra-support wire being placed on the circumflex artery. A 3 mm x 22 mm Ward frontier stent was deployed in the obtuse marginal artery at 12 david reducing the stenosis. An additional 3 mm x 22 mm [place] frontier stent was placed proximal to the for stent yet still overlapping the stent and deployed at 20 david. JACLYN-3 flow was present before and after the procedure. At the end the procedure the apparatus was removed the sheath was removed hemostasis was achieved using TR banding patient was transferred to the postop holding in stable condition ANGIOGRAPHIC RESULTS The left main artery Normal The left anterior descending artery Has proximal and mid vessel 20 to 30% stenoses. Distally there are diffuse 30% stenoses The circumflex artery Is nondominant and gives rise to a medium sized ramus intermedius which has diffuse 30% stenoses. The circumflex artery itself has stents in the proximal mid and distal segment. The midportion has a focal 90% concentric stenosis. There is an additional 40% stenosis in the obtuse marginal artery. The right coronary artery Proximally occluded. The distal vessel fills via [id number] collaterals primarily from the circumflex artery The VALENTIN ventriculogram reveals Not performed The left ventricular end-diastolic pressure Not measured IMPRESSION Chronically occluded right coronary artery which fills via left to right collaterals primarily from the circumflex artery Critical in-stent restenosis within the circumflex artery which collateralized the right coronary artery as well as fed the [place] circumflex artery Successful stenting of the circumflex artery extending to the first obtuse marginal artery severe disease reduced to 0% with 2 contiguous drug-eluting stents PLAN 1. Dual antiplatelet therapy 2. Cardiac rehabilitation 3. Continue anticoagulation for atrial fibrillation 4. LDL less than 55 to be achieved with high intensity statin 5. Avoidance of tobacco products 6. Rate control for atrial fibrillation 7. Recommend sleep study Electronically signed by : Peewee Campbell MD 02/19/2023 11:59:38
[2023-02-19 08:59] LABS: Basophils # 0.1 K/mm3 (0-0.2); Basophils % 0.8 % (0.1-2.0); Eosinophils # 0.1 K/mm3 (0.0-0.4); Eosinophils % 1.6 % (0.1-12.0); Hematocrit 54.2 % (42.0-52.0); Hemoglobin 17.7 g/dL (14.1-18.0); Lymphocytes # 1.5 K/mm3 (0.7-4.5); Lymphocytes % 18.7 % (10-50); Mean Corpuscular HGB Conc 32.6 g/dL (31.8-35.4); Mean Corpuscular Hemoglobin 32.5 pg (27.0-31.2); Mean Corpuscular Volume 99.7 fl (80-94); Mean Platelet Volume 9.4 fl (7.4-10.4); Monocytes # 0.6 K/mm3 (0.1-1.0); Monocytes % 7.1 % (1.7-9.3); Neutrophils # 5.9 K/mm3 (1.8-7.8); Neutrophils % 71.8 % (37.0-80.0); Platelet Count 254 K/mm3 (142-424); Red Blood Count 5.43 M/mm3 (4.60-6.20); Red Cell Distribution Width 14.2 % (11.5-17.5); White Blood Count 8.2 K/mm3 (4.8-10.8)
[2023-02-19 09:01] LABS: Chloride 103 mmol/L (98-107); Sodium 137 mmol/L (136-145)
[2023-02-19 09:04] LABS: Blood Urea Nitrogen 29 mg/dl (9-20); Calcium 8.9 mg/dl (8.4-10.2); Carbon Dioxide 18 mmol/L (22.0-30.0); Creatinine Clearance Estimated 100 mL/min (50-200); Estimated Glomerular Filt Rate 67 ml/min (>60); GFR (African American) 81 ML/MIN (>60); Glucose 234 mg/dl (74-100)
[2023-02-19] MEDS: VERAPAMIL 2.5MG/ML 2ML VIAL 2.5 MG IV (10:33)
[2023-02-19] MEDS: diphenhydrAMINE 50MG/ML VIAL 50 MG IV (10:33)
[2023-02-19] MEDS: LIDOCAINE 1% 10ML MDV 20 ML IJ (10:34)
[2023-02-19] MEDS: NITROGLYCERIN 800MCG/8ML SYR (CATH LAB) 800 MCG IA (10:34)
[2023-02-19] MEDS: HEPARIN 1,000 UNITS/500ML NS (CATH LAB) 3000 UNIT IV (10:35)
[2023-02-19] MEDS: HEPARIN 1,000 UNITS/ML 10ML VIAL (CATH LAB) 10000 UNIT IV (10:35)
[2023-02-19] MEDS: 0.9 % SODIUM CHLORIDE 500 ML 25 ML IV (10:35)
[2023-02-19] MEDS: MIDAZOLAM HCL 1MG/1ML 5ML VIAL 1 MG IV (10:36)
[2023-02-19] MEDS: FENTANYL 100MCG/2ML VIAL 50 MCG IV (10:36)
[2023-02-19] MEDS: CLOPIDOGREL 300MG TABLET 600 MG PO (11:28)
[2023-02-19] MEDS: IOPAMIDOL-370 (76%);100ML BOTTLE 85 ML IV (11:40)
[2023-02-19 11:42] LABS: CATHL Activated Clotting Time 392 SEC (74-125)
== END 2023-02-19 15:13 | disposition home or self-care (01) ==
PROVIDERS: PCP Family Medicine; Visit Provider Internal Medicine
DX: I25.110 Atherosclerotic heart disease of native coronary artery with unstable angina pectoris (principal); E78.5 Hyperlipidemia, unspecified; I10 Essential (primary) hypertension; I48.20 Chronic atrial fibrillation, unspecified; R94.30 Abnormal result of cardiovascular function study, unspecified; T82.855A Stenosis of coronary artery stent, initial encounter; Z79.01 Long term (current) use of anticoagulants; E11.9 Type 2 diabetes mellitus without complications; Z79.84 Long term (current) use of oral hypoglycemic drugs; F17.210 Nicotine dependence, cigarettes, uncomplicated; Z79.899 Other long term (current) drug therapy
CPT/HCPCS: 80048; 85025; 85347; 92928; 93454; 99152; C1725; C1769; C1876; C9600; J1644; Q9967

== ENCOUNTER 2023-02-26 10:19 | Outpatient (CLI) | payer BC, MEDICARE, SELFPAY ==
[2023-02-26 10:49] LABS: Basophils # 0.1 K/mm3 (0-0.2); Basophils % 0.7 % (0.1-2.0); Eosinophils # 0.1 K/mm3 (0.0-0.4); Eosinophils % 1.9 % (0.1-12.0); Hematocrit 52.7 % (42.0-52.0); Hemoglobin 16.8 g/dL (14.1-18.0); Lymphocytes # 1.3 K/mm3 (0.7-4.5); Lymphocytes % 18.3 % (10-50); Mean Corpuscular Hemoglobin 32.5 pg (27.0-31.2); Mean Corpuscular Volume 101.7 fl (80-94); Mean Platelet Volume 9.1 fl (7.4-10.4); Monocytes # 0.6 K/mm3 (0.1-1.0); Neutrophils % 71.2 % (37.0-80.0); Platelet Count 182 K/mm3 (142-424); Red Blood Count 5.18 M/mm3 (4.60-6.20); Red Cell Distribution Width 14.4 % (11.5-17.5)
[2023-02-26 11:20] LABS: Chloride 103 mmol/L (98-107); Potassium 5.4 mmoL/L (3.5-5.1); Sodium 136 mmol/L (136-145)
[2023-02-26 11:23] LABS: Anion Gap 16.4 mEq/L (5-15); Blood Urea Nitrogen 33 mg/dl (9-20); Calcium 9.2 mg/dl (8.4-10.2); Carbon Dioxide 22 mmol/L (22.0-30.0); Estimated Glomerular Filt Rate 47 ml/min (>60); GFR (African American) 56 ML/MIN (>60); Glucose 241 mg/dl (74-100)
== END 2023-02-26 23:59 ==
LOC: LAB 10:21
PROVIDERS: PCP Family Medicine; Visit Provider Internal Medicine
DX: I25.10 Atherosclerotic heart disease of native coronary artery without angina pectoris (principal); Z95.5 Presence of coronary angioplasty implant and graft; Z72.0 Tobacco use
CPT/HCPCS: 36415; 80048; 85025

== ENCOUNTER 2023-03-09 09:08 | Outpatient (CLI) | payer BC, MEDICARE, SELFPAY ==
[2023-03-09 09:54] LABS: Chloride 101 mmol/L (98-107)
[2023-03-09 09:55] LABS: Potassium 4.8 mmoL/L (3.5-5.1)
[2023-03-09 09:57] LABS: Blood Urea Nitrogen 39 mg/dl (9-20); Carbon Dioxide 22 mmol/L (22.0-30.0); Estimated Glomerular Filt Rate 47 ml/min (>60); GFR (African American) 56 ML/MIN (>60)
[2023-03-09 09:58] LABS: Calcium 9.2 mg/dl (8.4-10.2); Glucose 233 mg/dl (74-100)
[2023-03-09 10:47] LABS: Anion Gap 16.8 mEq/L (5-15); Sodium 135 mmol/L (136-145)
== END 2023-03-09 23:59 ==
PROVIDERS: PCP Family Medicine; Visit Provider Physician Assistant
DX: I25.10 Atherosclerotic heart disease of native coronary artery without angina pectoris (principal); I48.20 Chronic atrial fibrillation, unspecified
CPT/HCPCS: 36415; 80048

== ENCOUNTER 2023-03-31 12:56 | Outpatient (CLI) | payer MEDICARE, SELFPAY ==
[2023-03-31 14:02] LABS: Anion Gap 10.6 mEq/L (5-15); Blood Urea Nitrogen 16 mg/dl (9-20); Calcium 9.6 mg/dl (8.4-10.2); Carbon Dioxide 28 mmol/L (22.0-30.0); Chloride 105 mmol/L (98-107); Estimated Glomerular Filt Rate 67 ml/min (>60); GFR (African American) 81 ML/MIN (>60); Glucose 198 mg/dl (74-100); Potassium 4.6 mmoL/L (3.5-5.1); Sodium 139 mmol/L (136-145)
== END 2023-03-31 23:59 ==
PROVIDERS: Internal Medicine; PCP Family Medicine; Visit Provider Physician Assistant
DX: I10 Essential (primary) hypertension (principal); E11.69 Type 2 diabetes mellitus with other specified complication
CPT/HCPCS: 36415; 80048

== ENCOUNTER 2023-05-31 10:31 | Outpatient (CLI) | payer MEDICARE, SELFPAY ==
[2023-05-31 11:06] LABS: Basophils # 0.1 K/mm3 (0-0.2); Eosinophils # 0.1 K/mm3 (0.0-0.4); Eosinophils % 1.6 % (0.1-12.0); Hematocrit 55.1 % (42.0-52.0); Lymphocytes # 0.8 K/mm3 (0.7-4.5); Lymphocytes % 11.4 % (10-50); Mean Corpuscular HGB Conc 30.9 g/dL (31.8-35.4); Mean Corpuscular Hemoglobin 31.6 pg (27.0-31.2); Mean Corpuscular Volume 102.3 fl (80-94); Mean Platelet Volume 9.2 fl (7.4-10.4); Monocytes # 0.6 K/mm3 (0.1-1.0); Monocytes % 8.2 % (1.7-9.3); Neutrophils # 5.4 K/mm3 (1.8-7.8); Neutrophils % 77.7 % (37.0-80.0); Platelet Count 232 K/mm3 (142-424); Red Blood Count 5.39 M/mm3 (4.60-6.20); Red Cell Distribution Width 14.5 % (11.5-17.5)
[2023-05-31 11:42] LABS: Alanine Aminotransferase 48 U/L (12-78); Albumin Level 4.5 g/dl (3.5-5.0); Alkaline Phosphatase 59 U/L (38-126); Anion Gap 12.5 mEq/L (5-15); Aspartate Amino Transferase 38 U/L (17-59); Bilirubin,Direct 0.2 mg/dl (0.0-0.4); Bilirubin,Indirect 0.7 mg/dL (0.0-0.9); Bilirubin,Total 0.9 mg/dl (0.2-1.3); Bilirubin,Unconjugated 0.7 mg/dL (0.0-1.1); Blood Urea Nitrogen 12 mg/dl (9-20); Calcium 9.7 mg/dl (8.4-10.2); Carbon Dioxide 25 mmol/L (22.0-30.0); Chloride 108 mmol/L (98-107); Chol/HDL Ratio 2.6 (1-3.5); Cholesterol 123 mg/dl (140-200); Estimated Glomerular Filt Rate 84 ml/min (>60); GFR (African American) 102 ML/MIN (>60); Glucose 199 mg/dl (74-100); HDL Cholesterol 48 mg/dl (40-60); Potassium 4.5 mmoL/L (3.5-5.1); Sodium 141 mmol/L (136-145); Triglycerides 124 mg/dl (30-150); VLDL Cholesterol 25 mg/dL (0-40)
[2023-05-31 11:54] LABS: Direct LDL Cholesterol 63.43 mg/dL (100-129)
[2023-05-31 11:58] LABS: Free T4 (Free Thyroxine) 0.91 ng/dl (0.78-2.19)
[2023-05-31 14:23] LABS: Hemoglobin A1C 8.4 % (4.0-6.0)
[2023-05-31 16:02] LABS: Vitamin B12 421 pg/mL (239-931)
== END 2023-05-31 23:59 | disposition home or self-care (01) ==
LOC: LAB 12:49
PROVIDERS: PCP Family Medicine; Visit Provider Physician Assistant
DX: K21.9 Gastro-esophageal reflux disease without esophagitis (principal); Z95.5 Presence of coronary angioplasty implant and graft; E11.69 Type 2 diabetes mellitus with other specified complication; E66.9 Obesity, unspecified; E78.2 Mixed hyperlipidemia; I25.10 Atherosclerotic heart disease of native coronary artery without angina pectoris; I48.20 Chronic atrial fibrillation, unspecified; R06.00 Dyspnea, unspecified; I11.9 Hypertensive heart disease without heart failure; D75.89 Other specified diseases of blood and blood-forming organs; Z68.36 Body mass index [BMI] 36.0-36.9, adult; Z79.84 Long term (current) use of oral hypoglycemic drugs; Z79.899 Other long term (current) drug therapy
CPT/HCPCS: 36415; 80048; 80061; 80076; 82607; 82746; 83036; 84439; 84443; 85025

== ENCOUNTER 2023-06-18 07:40 | Emergency (ER) | payer MEDICARE, SELFPAY ==
[2023-06-18] VITALS (9 sets, daily range): BP systolic 124–194; BP diastolic 81–112; PULSE 66–100; RESP 18–95; TEMP 36.8; O2SAT 93–98; BMI 37.5
--- NOTE | 2023-06-18 07:50 | PC.NURSE ---
BLADDER SCAN >779MLS
--- NOTE | 2023-06-18 07:55 | PC.NURSE ---
ED MD AT BEDSIDE
--- NOTE | 2023-06-18 08:00 | CT_ITS ---
FINAL REPORT TECHNIQUE: After the administration of intravenous contrast, axial images were obtained through the abdomen and pelvis by computed tomography. This study was performed with technique to keep radiation doses as low as reasonably achievable, (ALARA). Individualized dose reduction techniques using automated exposure control or adjustment of the MA and/or KV according to the patient's size were employed. CLINICAL HISTORY: gross hematuria, c/f infected stone FINDINGS: Abdomen: The lung bases are clear. The liver is fatty infiltrated. A cyst is seen in the anterior liver measuring 16 mm. Gallbladder is normal. The spleen is unremarkable. The adrenals are normal. The pancreas is unremarkable. There is severe right renal atrophy. Dystrophic calcifications are seen within the anterior mid left kidney likely corresponding to areas of scarring. There is a benign left renal cyst. No enhancing renal mass is identified. The aorta is normal in caliber. There is no free fluid or adenopathy. Pelvis: The appendix is is normal. There is significant urinary bladder wall thickening with surrounding stranding suggestive of cystitis. A Chopra catheter is present. Prostate is mildly enlarged.. There is no free fluid or adenopathy. IMPRESSION: Significant urinary bladder wall thickening with stranding suggestive of inflammatory process. Renal scarring, right much greater than left. No enhancing renal mass. Reviewed, Interpreted and Dictated by Karyn Kerr MD Transcribed by Silva Mcdaniels Authenticated and [facility]
--- NOTE | 2023-06-18 08:01 | HMH.EDGENADL ---
Discharge Plan Disposition Patient Disposition: Home, Self-Care Condition: Fair Prescriptions Prescriptions: No Action Farxiga 5 mg tablet 10 mg PO DAILY furosemide [Lasix] 40 mg tablet 40 mg PO .PRN Eliquis 5 mg tablet 5 mg PO BID Qty: 60 5RF levetiracetam 750 mg tablet 750 mg PO BID metformin 500 mg tablet 500 mg PO BID Hold Instructions: Resume on 02/22/23. Patient Comments: TAKE 1 TABLET BY MOUTH TWICE DAILY WITH A MEAL tamsulosin 0.4 mg capsule 0.4 mg PO DAILY lisinopril 40 mg tablet 40 mg PO DAILY Qty: 90 3RF rosuvastatin 20 mg tablet 20 mg PO DAILY Qty: 90 3RF bisoprolol fumarate 10 mg tablet 10 mg PO DAILY Qty: 30 5RF clopidogrel [Plavix] 75 mg Tablet 75 mg PO DAILY 30 Days Qty: 30 6RF Referrals Follow up/Referrals: Randi Lees MD [Primary Care Provider] - See instructions Activity Restrictions/Add. Instructions Additional Instructions/Restrictions: You were seen in the ED today due to blood in urine. Please keep urinary catheter in place. Continue taking antibiotics. Follow-up with Dr. Armstrong on Wednesday. Return to the ED if symptoms worsen or if new concerning symptoms arise. Thank you. Clinical Impressions Clinical Impression: Hematuria Qualifiers: Hematuria type: gross Qualified Code(s): R31.0 - Gross hematuria Instructions Patient Instructions: How to Care for Your Chopra Catheter -- Male, DI for Urinary Tract Infection (UTI) Discharge ED Provider: John Harden General Adult HPI General Chief complaint: Urogenital-Male Stated complaint: bleeding thru penis Time Seen by Provider: 06/18/23 07:53 History of Present Illness HPI narrative: Patient is a 67-year-old male with history of HTN, HLD, diabetes, CAD s/p stent, prior NE, A-fib on Eliquis who presents due to hematuria and difficulty urinating. Patient's family is present to help provide history. Patient reports on 06/13 he had cystoscopy performed for attempt of treatment of left kidney stone. States upon insertion of scope into the bladder, they were unable to locate the left ureterovesicular junction. States he was told the inside of his bladder looked like cobblestone. States there was cauterization performed and biopsy taken. States he was ultimately discharged on antibiotics. Patient reports since last night at approximately 2100 he has been unable to urinate and has only had bright red blood coming from his penis. States he has had increasing pressure in the region of his bladder. Denies any flank or back pain. Denies any fevers, nausea or vomiting. Denies any other history of abdominal procedures. Related Data Home Medications Medication Instructions Recorded Confirmed dapagliflozin propanediol 5 mg 10 mg PO DAILY 12/05/19 05/31/23 tablet (Farxiga) levetiracetam 750 mg tablet 750 mg PO BID 08/08/20 05/31/23 metformin 500 mg tablet 500 mg PO BID 08/08/20 05/31/23 tamsulosin 0.4 mg capsule 0.4 mg PO DAILY 08/08/20 05/31/23 furosemide 40 mg tablet (Lasix) 40 mg PO .PRN 05/31/23 Previous Rx's Medication Instructions Recorded lisinopril 40 mg tablet 40 mg PO DAILY #90 tabs 12/25/21 rosuvastatin 20 mg tablet 20 mg PO DAILY Cholesterol #90 tabs 12/29/22 clopidogrel 75 mg tablet (Plavix) 75 mg PO DAILY 30 days #30 tabs 02/19/23 bisoprolol fumarate 10 mg tablet 10 mg PO DAILY #30 tabs 05/10/23 apixaban 5 mg tablet (Eliquis) 5 mg PO BID #60 tabs 05/31/23 Allergies Allergy/AdvReac Type Severity Reaction Status Date / Time No Known Allergies Allergy Verified 05/31/23 09:40 [facility] Disclaimer: The information contained in this section may have been updated after the patient was seen, as this information can be updated by other users. Medical History Hyperkalemia Myocardial infarction Brain bleed Abnormal result of cardiovascular function study Dyspnea Claudication Diabetes mellitus type 2 in obese Atrial fibrillation Surgical History History of coronary artery stent placement Family History Other No significant family history Social History Smoking Status: Former smoker tobacco type: cigarettes packs per day: 1 second hand exposure: No alcohol intake: never substance use type: denies use current occupational status: employed Travel in the last 8 weeks: Inside the [place] household members: spouse housing: house current occupational exposures/hazards: No caffeine: Yes ROS Obtained: Yes All systems reviewed & no additional complaints except as documented Physical Exam General General appearance: alert and in no apparent distress Head Head exam: atraumatic, normocephalic and normal inspection Eye Eye exam: Present normal appearance, PERRL and EOMI ENT ENT exam: Present normal exam, normal oropharynx, mucous membranes moist, TM's normal bilaterally and normal external ear exam Neck Neck exam: Present normal inspection, full ROM and trachea midline; Absent meningismus or lymphadenopathy Chest Chest inspection: Present normal inspection and symmetric chest wall rise; Absent tenderness Respiratory Respiratory exam: Present normal lung sounds bilaterally; Absent respiratory distress Cardiovascular Cardiovascular exam: Present regular rate and normal rhythm; Absent JVD Abdominal Exam Abdominal exam: Present soft, tenderness and normal bowel sounds; Absent distention or guarding Abdominal tenderness: Present suprapubic Comment: Suprapubic fullness and tenderness. No flank or CVA tenderness. exam: Present other (Bright red blood from urethral meatus.) Extremities Exam Extremities exam: Present normal inspection, full ROM and normal capillary refill; Absent calf tenderness Back Exam Back exam: Present normal inspection; Absent tenderness Neurological Exam Neurological exam: Present alert and oriented X3 Psychiatric Psychiatric exam: Present normal affect and normal mood Skin Skin exam: Present warm, dry, intact and normal color Lymphatic Lymphatic Findings: no adenopathy Medical Decision Making [place] Inquiry Pt receiving controlled substance: No Vital Signs: 06/18/23 07:41 06/18/23 08:22 06/18/23 08:30 Temperature 98.3 F Temperature Source Oral Pulse Rate 76 79 Pulse Rate [Right] 100 H Respiratory Rate 95 H Blood Pressure 144/89 H 155/84 H Blood Pressure [Right Arm] 194/108 H Blood Pressure Mean Blood Pressure Mean [Right Arm] 136 Blood Pressure Source [Right Arm] Automatic Cuff 02 Sat by Pulse Oximetry 96 95 95 Oxygen Delivery Method Room Air Room Air Room Air 06/18/23 09:30 06/18/23 10:00 06/18/23 10:30 Temperature Temperature Source Pulse Rate 74 76 72 Pulse Rate [Right] Respiratory Rate Blood Pressure 124/81 131/86 151/105 H Blood Pressure [Right Arm] Blood Pressure Mean 97 Blood Pressure Mean [Right Arm] Blood Pressure Source [Right Arm] 02 Sat by Pulse Oximetry 96 93 L 93 L Oxygen Delivery Method Room Air Room Air 06/18/23 10:45 Temperature Temperature Source Pulse Rate 71 Pulse Rate [Right] Respiratory Rate Blood Pressure 151/105 H Blood Pressure [Right Arm] Blood Pressure Mean Blood Pressure Mean [Right Arm] Blood Pressure Source [Right Arm] 02 Sat by Pulse Oximetry 95 Oxygen Delivery Method Lab Data Lab Results 06/18/23 07:48: WBC 9.8, RBC 5.18, Hgb 16.6, Hct 51.8, MCV 100.1 H, MCH 32.0 H, MCHC 31.9, RDW 14.5, Plt Count 265, MPV 9.1, Neut % (Auto) 80.6 H, Lymph % (Auto) 11.6, [place] % (Auto) 6.3, Eos % (Auto) 0.8, Baso % (Auto) 0.7, Neut # (Auto) 7.9 H, Lymph # (Auto) 1.2, [place] # (Auto) 0.6, Eos # (Auto) 0.1, Baso # (Auto) 0.1, Sodium 142, Potassium 4.5, Chloride 107, Carbon Dioxide 23, Anion Gap 16.5 H, BUN 15, Creatinine 1.00, Estimated Creat Clear 110, Estimated GFR 75, Est GFR ( Amer) 90, Glucose 215 H, Calcium 10.1, Total Bilirubin 0.8, AST 47, ALT 52, Alkaline Phosphatase 67, Total Protein 7.9, Albumin 4.8, Globulin 3.1, Albumin/Globulin Ratio 1.5, Lipase 95 06/18/23 10:26: Urine Color Red, Urine Appearance Sl cloudy, Urine pH 6.5, Ur Specific [place] 1.015, Urine Protein 3+, Urine Glucose (UA) 3+, Urine Ketones 1+, Urine Blood 3+, Urine Nitrate Positive, Urine Bilirubin Negative, Urine Urobilinogen >=8.0, Ur Leukocyte Esterase 2+ A, Urine RBC 20-50, Urine WBC 5-10, Ur Squamous Epith Cells Occasional, Urine Bacteria Trace 06/18/23 07:48 06/18/23 07:48 Orders (Tests/Meds): ED MEDICATIONS Generic Name Dose Route Start Last Admin Trade Name Freq PRN Reason Stop Dose Admin Sodium Chloride 10 ml 06/18/23 08:40 Sodium Chloride 0.9% 10ml Flush Syringe IV 07/18/23 08:39 NEEDED PRN Maintain IV Site Sodium Chloride 10 ml 06/18/23 08:59 06/18/23 09:00 Sodium Chloride 0.9% 10ml Syr (Rad Only) IV 07/18/23 08:58 10 ml NEEDED PRN Administration Maintain IV Site Discontinued Medications Generic Name Dose Route Start Last Admin Trade Name Iliana PRN Reason Stop Dose Admin Iopamidol 75 ml 06/18/23 08:59 06/18/23 09:00 Iopamidol-370 (76%);100ml Bottle IV 06/18/23 09:00 75 ml ONCE ONE Administration Morphine Sulfate 4 mg 06/18/23 08:00 06/18/23 08:18 Morphine 4mg/Ml Syringe IV 06/18/23 08:01 4 mg ONCE ONE Administration ORDERS Category Date Time Status CT abdomen pelvis w con Stat Cat Scan 06/18/23 08:00 Completed CBC w/Auto Diff [Complete Blood Count Auto Diff] Stat Lab 06/18/23 07:48 Completed CMP [Comprehensive Metabolic Panel] Stat Lab 06/18/23 07:48 Completed Lipase Stat Lab 06/18/23 07:48 Completed Urinalysis and Microscopic Stat Lab 06/18/23 10:26 Completed Urine Culture Stat Micro 06/18/23 10:26 Received Medical Decision Narrative: In summary, patient is 67-year-old male with history of recent cystoscopy, evaluated in the emergency department today due to gross hematuria and inability to urinate. On arrival, patient is [hemodynamically stable with normal vital signs]. On examination, patient has suprapubic fullness and tenderness. Differential diagnosis includes but is not limited to kidney stone, pyelonephritis, malignancy, urethral obstruction, bladder outlet obstruction, cystitis. Patient given IV morphine. Workup initiated including CBC, CMP, lipase, urinalysis, CT abdomen/pelvis with contrast. Labs independently interpreted by me and significant for blood/RBCs and leuk esterase/nitrates with 5-10 WBCs in urine. Imaging independently interpreted by me and significant for CT imaging demonstrating urinary bladder wall thickening with renal scarring. On arrival, bladder scan reveals approximately 700 mL urine in bladder. Chopra catheter was placed with output of bloody urine. Irrigation of bladder performed with approximately 1.3 L fluid. Upon completion, urine has shifted from grossly bloody to pinkish tinged. Patient reports significant relief in pain. Patient's urologist Dr. Armstrong at [facility] contacted and case was discussed. He recommends sending urine for culture and he will follow-up with the patient on 06/20. Patient is to be discharged from the ED with urinary catheter in place. Patient is agreeable to this plan. Patient will continue taking his current antibiotics and Dr. Armstrong will assess whether coverage is appropriate pending culture results. Patient and family counseled on home care, given strict return precautions and agreeable to plan. Additional history was provided by family. I considered admitting the patient to the hospital for observation, and in shared decision-making with patient and family, decided on outpatient management. Critical Care Critical Care Time Critical Care Time: No
[2023-06-18] MEDS: MORPHINE 4MG/ML SYRINGE 4 MG IV (08:18)
[2023-06-18 08:29] LABS: Basophils # 0.1 K/mm3 (0-0.2); Basophils % 0.7 % (0.1-2.0); Eosinophils # 0.1 K/mm3 (0.0-0.4); Eosinophils % 0.8 % (0.1-12.0); Hematocrit 51.8 % (42.0-52.0); Hemoglobin 16.6 g/dL (14.1-18.0); Lymphocytes # 1.2 K/mm3 (0.7-4.5); Lymphocytes % 11.6 % (10-50); Mean Corpuscular HGB Conc 31.9 g/dL (31.8-35.4); Mean Corpuscular Volume 100.1 fl (80-94); Mean Platelet Volume 9.1 fl (7.4-10.4); Monocytes # 0.6 K/mm3 (0.1-1.0); Monocytes % 6.3 % (1.7-9.3); Neutrophils # 7.9 K/mm3 (1.8-7.8); Neutrophils % 80.6 % (37.0-80.0); Platelet Count 265 K/mm3 (142-424); Red Blood Count 5.18 M/mm3 (4.60-6.20); Red Cell Distribution Width 14.5 % (11.5-17.5); White Blood Count 9.8 K/mm3 (4.8-10.8)
[2023-06-18 08:47] LABS: Chloride 107 mmol/L (98-107); Potassium 4.5 mmoL/L (3.5-5.1); Sodium 142 mmol/L (136-145)
[2023-06-18 08:50] LABS: Alanine Aminotransferase 52 U/L (12-78); Albumin Level 4.8 g/dl (3.5-5.0); Albumin/Globulin Ratio 1.5 (1.1-1.8); Alkaline Phosphatase 67 U/L (38-126); Anion Gap 16.5 mEq/L (5-15); Aspartate Amino Transferase 47 U/L (17-59); Bilirubin,Total 0.8 mg/dl (0.2-1.3); Blood Urea Nitrogen 15 mg/dl (9-20); Calcium 10.1 mg/dl (8.4-10.2); Carbon Dioxide 23 mmol/L (22.0-30.0); Creatinine Clearance Estimated 110 mL/min (50-200); Estimated Glomerular Filt Rate 75 ml/min (>60); GFR (African American) 90 ML/MIN (>60); Globulin 3.1 g/dL (1.3-3.2); Glucose 215 mg/dl (74-100); Lipase 95 U/L (23-300); Total Protein,Serum 7.9 g/dl (6.3-8.2)
[2023-06-18] MEDS: SODIUM CHLORIDE 0.9% 10ML SYR (RAD ONLY) 10 ML IV (09:00)
[2023-06-18] MEDS: IOPAMIDOL-370 (76%);100ML BOTTLE 75 ML IV (09:00)
--- NOTE | 2023-06-18 09:06 | PC.NURSE ---
PT RETURNED FROM CT
--- NOTE | 2023-06-18 10:26 | PC.NURSE ---
Pt & his family asking to have Dr. Harden consult with his urologist, Dr. Jacob Armstrong
[2023-06-18 10:28] LABS: Microscopic, Urine URINE MICROSCOPIC (MICROSCOPIC)
[2023-06-18 10:32] LABS: Appearance,Urine SL CLOUDY (Clear); Bilirubin,Urine Negative (Negative); Blood, Urine 3+ (Negative); Color,Urine RED (Yellow); Glucose,Urine (UA) 3+ (Negative); Ketones,Urine 1+ (Negative); Leukocyte Esterase,Urine 2+ (Negative); Nitrate,Urine POSITIVE (Negative); PH,Urine 6.5 (5.0-8.5); Protein,Urine 3+ (Negative); Specific Gravity, Urine 1.015 (1.005-1.030); Urobilinogen,Urine >=8.0 EU/dl (0.2)
--- NOTE | 2023-06-18 10:33 | PC.NURSE ---
ROSEY LEMA SPEAKING WITH DR NORWOOD, UROLOGIST
--- NOTE | 2023-06-18 10:37 | PC.NURSE ---
rounded on pt no needs at this time,call light in reach
[2023-06-18 10:53] LABS: RBC,Urine 20-50 #/hpf (0-3)
[2023-06-18 10:54] LABS: Bacteria,Urine Trace /lpf; Squamous Epithelial Cell,Urine Occasional #/hpf (0-5)
--- NOTE | 2023-06-18 20:03 | PC.NURSE ---
spoke with daughter in law who has questions she is relaying from urologist re: size of marcus placed earlier. verbal permission for conversation obtained. no further requests for information at th is time.
== END 2023-06-18 11:26 | disposition home or self-care (01) ==
PROVIDERS: Emergency Provider Student in an Organized Health Care Education/Training Program; PCP Family Medicine
DX: R31.0 Gross hematuria (principal); R33.8 Other retention of urine; E11.9 Type 2 diabetes mellitus without complications; I48.0 Paroxysmal atrial fibrillation; E78.5 Hyperlipidemia, unspecified; I11.9 Hypertensive heart disease without heart failure; I25.10 Atherosclerotic heart disease of native coronary artery without angina pectoris; Z95.5 Presence of coronary angioplasty implant and graft; Z79.01 Long term (current) use of anticoagulants; Z87.442 Personal history of urinary calculi; Z87.891 Personal history of nicotine dependence; Z79.84 Long term (current) use of oral hypoglycemic drugs
CPT/HCPCS: 51702; 74177; 80053; 81001; 83690; 85025; 87086; 96374; 99285; Q9967